=== PATIENT | female | born 1960 | race Caucasian/White ===

== ENCOUNTER → 2023-02-16 10:29 | Outpatient (BNVA) | payer OTHER, SELFPAY | PROVIDERS: Family Provider Nurse Practitioner; PCP Nurse Practitioner; Visit Provider Internal Medicine Cardiovascular Disease | DX: I48.91 Unspecified atrial fibrillation (principal) | CPT/HCPCS: 93005 ==

== ENCOUNTER → 2023-03-01 09:13 | Outpatient (BNVA) | payer MEDICAID, SELFPAY | PROVIDERS: Family Provider Nurse Practitioner; PCP Family Medicine; Visit Provider Family Medicine | DX: I48.91 Unspecified atrial fibrillation (principal); E11.9 Type 2 diabetes mellitus without complications; E78.5 Hyperlipidemia, unspecified | CPT/HCPCS: 80053; 80061; 83036; 83735; 84443; 85025 ==

== ENCOUNTER 2023-04-02 08:12 | Outpatient (CLI) | payer OTHER, SELFPAY ==
--- NOTE | 2023-04-02 08:45 | US_ITS ---
WS: [id number] Complete ABDOMINAL ULTRASOUND HISTORY: R10.32 - Left lower quadrant pain COMPARISON: None available. Liver: 17.0 cm in length. Normal size liver and echogenicity. No bile duct dilatation or mass. Portal Vein: Normal hepatopetal flow with monophasic waveform. Gallbladder: Gallbladder is not identified. No surgical history of cholecystectomy was provided. CBD: 0.5 cm Pancreas: Normal size and echogenicity. Right kidney: 11.0 cm x 5.9 x 4.7 cm. Cortex:1.1 cm. Normal size and echogenicity. No hydronephrosis or mass. Left kidney: 10.4 cm x 4.8 cm x 5.1 cm. Cortex: 1.0 cm. Normal size and echogenicity. No hydronephrosis or mass. Spleen: 11.0 cm in length. Normal size spleen. There is a calcified mass within the spleen measuring 3.0 x 3.1 x 2.8 cm. No increased vascularity. Aorta and IVC: Unremarkable abdominal aorta and IVC. Impression: 1. Calcified mass in the spleen measures 3.0 x 3.1 x 2.8 cm. No prior studies for comparison. This ma y be a granuloma. Calcified hematoma or cystic mass may also appear similar. 2. Gallbladder is not identified. Patient did not provide a history of prior cholecystectomy. 3. Normal liver.
== END 2023-04-02 08:13 | disposition home or self-care (01) ==
LOC: RAD 08:14
PROVIDERS: PCP Family Medicine; Visit Provider Family Medicine
DX: R10.32 Left lower quadrant pain (principal); R16.1 Splenomegaly, not elsewhere classified
CPT/HCPCS: 76700

== ENCOUNTER → 2023-06-04 12:18 | Outpatient (BNVA) | payer OTHER, SELFPAY | PROVIDERS: PCP Family Medicine; Visit Provider Family Medicine | DX: E11.9 Type 2 diabetes mellitus without complications (principal); E03.9 Hypothyroidism, unspecified; I48.91 Unspecified atrial fibrillation | CPT/HCPCS: 80053; 83036; 84443; 85025 ==

== ENCOUNTER → 2023-10-18 09:52 | Outpatient (BNVA) | payer OTHER, SELFPAY | PROVIDERS: PCP Family Medicine; Visit Provider Family Medicine | DX: I10 Essential (primary) hypertension (principal); E78.2 Mixed hyperlipidemia; E11.9 Type 2 diabetes mellitus without complications; E03.9 Hypothyroidism, unspecified | CPT/HCPCS: 80053; 80061; 82043; 82652; 83036; 84443; 85025 ==

== ENCOUNTER 2024-02-17 21:12 | Inpatient (IN) | payer OTHER, SELFPAY ==
[2024-02-17 21:16] VITALS: BP 123/86; PULSE 139; RESP 24; BMI 38.6
--- NOTE | 2024-02-17 21:23 | ECG_ITS ---
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 Measurements Intervals [place] Rate: 181 P: 0 DC: 0 QRS: 15 QRSD: 87 T: 129 QT: 237 QTc: 412 Interpretive Statements ATRIAL FIBRILLATION WITH RAPID VENTRICULAR RESPONSE WITH ABERRANT CONDUCTION OR VENTRICULAR PREMATURE COMPLEXES NONSPECIFIC ST & T-WAVE ABNORMALITY Compared to ECG 02/16/2023 10:34:38 Aberrant conduction of supraventricular beat(s) now present Ventricular premature complex(es) now present T-wave abnormality now present Sinus rhythm no longer present Electronically Signed On 02-18-2024 9:09:22 CDT by Boy Duncan M.D. [id number]
--- NOTE | 2024-02-17 21:38 | PC.NURSE ---
At time of obtaining vitals, heart rate noted to be elevated. EKG was then obtained; patient was then immediately moved to a room and Dr Nieto given printed EKG.
[2024-02-17] MEDS: metoprolol tartrate 1 mg/1 mL SDV 5 mL 5 MG IVP (21:44)
[2024-02-17] MEDS: ondansetron 2 mg/ML SDV 2 mL 4 MG IVP (21:45)
[2024-02-17] MEDS: sodium chloride 0.9% 1,000 ML 999 ML IV (21:45)
[2024-02-17 21:48] LABS: Basophils # 0.1 10^3/uL (0.0-0.1); Basophils % 1.1 %; Eosinophils # 0.1 10^3/uL (0.0-0.8); Eosinophils % 0.9 %; Hematocrit 53.1 % (36-47); Lymphocytes # 3.7 10^3/uL (0.8-4.8); Lymphocytes % 32.8 %; Mean Corpuscular Hemoglobin 31.7 pg (27-33); Mean Corpuscular Volume 90.6 fl (85-98); Mean Platelet Volume 10.7 fL (7.4-10.4); Monocytes # 0.8 10^3/uL (0.2-0.9); Monocytes % 7.3 %; Neutrophils # 6.49 10^3/uL (1.8-7.7); Neutrophils % 57.5 %; Nucleated Red Blood Cells % 0.2 %; Platelet Count 289 10^3/cmm (157-399); Red Blood Count 5.86 10^6/uL (3.85-5.65); Red Cell Distribution Width 12.8 % (12.1-15.1); White Blood Count 11.27 10^3/uL (3.29-11.43)
[2024-02-17 21:51] VITALS: TEMP 36.4
[2024-02-17 22:00] LABS: Alanine Aminotransferase 16 U/L (0-33); Albumin Level 3.8 g/dL (3.5-5.2); Alkaline Phosphatase 106 U/L (35-105); Anion Gap 23.7 (5-19); Aspartate Amino Transferase 16 U/L (0-32); Blood Urea Nitrogen 22 mg/dL (8-23); Calcium 9.1 mg/dL (8.5-10.5); Carbon Dioxide 25 mmol/L (22-29); Chloride 89 mmol/L (98-107); Creatinine Clr Calc Pharmacy 55.5294; Globulin 3.5 g/dL (1.3-4.6); Glomerular Filtration Rate 38.1 mL/min (90-130); Glucose 289 mg/dL (65-115); Lipase 32 U/L (13-60); Osmolality Calculated 294 mOsm/kg (285-295); Sodium 135 mmol/L (136-145); Total Bilirubin 0.7 mg/dL (0.15-1.2); Total Protein 7.3 g/dL (6.6-8.7)
[2024-02-17 22:05] LABS: Potassium 2.7 mmol/L (3.5-5.1)
[2024-02-17 22:26] VITALS: BP 142/92; PULSE 75; RESP 16; O2SAT 99
[2024-02-17 22:36] VITALS: BP 138/92; PULSE 76; RESP 16; O2SAT 98
[2024-02-17 22:54] LABS: SARS Covid-2 Antigen negative (Negative)
[2024-02-17 23:00] VITALS: BP 135/96; PULSE 78; RESP 19; O2SAT 98
[2024-02-17] MEDS: lidocaine 1% 5 ML in potassium chloride premix 100 ML 26.25 ML IV (23:03)
--- NOTE | 2024-02-17 23:06 | CTR_ITS ---
PROCEDURE INFORMATION: Exam: CT Abdomen And Pelvis Without Contrast Exam date and time: 02/17/2024 11:15 PM Age: 63 years old Clinical indication: Nausea and vomiting; Abdominal pain; Generalized; Prior surgery; Surgery date: 6+ months; Surgery type: Gb; Patient HX: Diffuse abd pain with n/v TECHNIQUE: Imaging protocol: Computed tomography of the abdomen and pelvis without contrast. Radiation optimization: All CT scans at this facility use at least one of these dose optimization techniques: automated exposure control; mA and/or kV adjustment per patient size (includes targeted exams where dose is matched to clinical indication); or iterative reconstruction. COMPARISON: US abdomen complete* [id number] 04/02/2023 8:30 AM RADIATION DOSE METRICS: Total DLP (mGy-cm): 1033.52 FINDINGS: Coronary arteries: Coronary artery calcifications. Liver: Normal. No mass. Gallbladder and biliary ducts: Status post cholecystectomy. Pancreas: Normal. No ductal dilation. Spleen: Peripherally calcified lesions within the spleen, the largest measuring approximately 4.0 x 3.5 cm likely representing calcified granulomas. Adrenal glands: Normal. No mass. Kidneys and ureters: Normal. No hydronephrosis. Stomach and bowel: Wall thickening of the ascending and transverse colon concerning for colitis. Appendix: No evidence of appendicitis. Intraperitoneal space: Unremarkable. No free air. No significant fluid collection. Vasculature: Moderate atherosclerotic calcifications. Lymph nodes: Unremarkable. No enlarged lymph nodes. Urinary bladder: Unremarkable as visualized. Reproductive: Unremarkable as visualized. Bones/joints: 2 mm anterolisthesis of L4 on L5. Soft tissues: Unremarkable. CT/CT abdomen pelvis wo con [id number] IMPRESSION: Wall thickening of the ascending and transverse colon concerning for colitis.
--- NOTE | 2024-02-17 23:06 | W.ED.ABDPA2 ---
HPI - Abdominal Pain General: Chief Complaint: Abdominal Pain Stated Complaint: Hasn't ate in 2 weeks due to stomach pain Time Seen by Provider: 02/17/24 21:37 History of Present Illness: 63-year-old female presents due to abdominal pain and reports that she has not eaten in 2 weeks because of the pain. Patient also reports that she did not take her sotalol today for her atrial fibs. She reports she has had a lot of nausea with a little bit of vomiting. Abdominal pain is nonspecific. Denies any fever, chills, shortness of breath or other systemic complaints. Associated Symptoms: Reports nausea; Denies chills and fever(s) Review of Systems Const: Reports: fatigue; Denies: fever(s) or chills Card: Denies: chest pain or palpitations Resp: Denies: dyspnea, productive cough or non-productive cough GI: Reports: abdominal pain and nausea Musc: Denies: neck pain or back pain Skin/Breast: Denies: rash PFSH ED PFSH: Medical History Hypertension Arthritis Surgical History S/P knee replacement S/P cholecystectomy Family History Mother Myocardial infarction S/P PTCA (percutaneous transluminal coronary angioplasty) Stroke Hyperlipidemia Father Myocardial infarction S/P PTCA (percutaneous transluminal coronary angioplasty) Hypertension Hyperlipidemia Sister Myocardial infarction S/P PTCA (percutaneous transluminal coronary angioplasty) Hypertension Diabetes Social History Smoking and tobacco/nicotine status: current every day tobacco/nicotine user cigarettes Packs smoked per day: 1 Years cigarettes smoked: 50 Physical Exam Const: COMMON NORMALS: no acute distress and patient oriented x3 NUTRITIONAL APPEARANCE: obese Resp: COMMON NORMALS: normal respiratory effort, No use of accessory muscles and clear to auscultation bilaterally AUSCULTATION: clear to auscultation bilaterally Cardio: RATE: tachycardic RHYTHM: abnormal rhythm GI: INSPECTION: Yes normal to inspection Neuro: COMMON NORMALS: patient oriented x3, CN's II-XII intact bilaterally, moves all extremities, no focal motor deficits and no sensory deficits noted Psych: COMMON NORMALS: mental status grossly normal, cooperative and normal affect Course Vital Signs: Vital signs: Vital Signs Temperature 97.5 F L 02/17/24 21:51 Pulse Rate 75 02/18/24 01:24 Respiratory Rate 16 02/18/24 01:24 Blood Pressure 160/104 02/18/24 01:24 Pulse Oximetry 95 02/18/24 01:24 Oxygen Delivery Me thod Room Air 02/17/24 22:36 MDM - Abdominal Pain Medical Decision Making Patient diagnoses were reviewed and interpreted by me. Patient labs are consistent with some dehydration and vomiting with potassium loss with a potassium of 2.7, slight decrease in her sodium and chloride. Slight increase in her baseline creatinine. Patient CT was positive for colitis along with labs concerning for urinary tract infection. She was given Rocephin in the ER along with 40 mill equivalents IV potassium. Patient's initial rhythm showed a heart rate of 181 with A-fib with RVR. She was given 5 mg of metoprolol IV along with IV fluids and converted back to sinus rhythm with her heart rates been in the 70s. Patient reports that she had mild keep her sotalol down is likely why she was in atrial fibs. Patient will be admitted to the hospitalist Dr. Hull for observation for further inpatient management. She is stable upon admission. Lab Data 02/17/24 21:39 02/17/24 21:39 Labs/Radiology: Radiology Impressions Abdomen/Pelvis CT 02/17/24 23:06 IMPRESSION: Wall thickening of the ascending and transverse colon concerning for colitis. Laboratory Results WBC 11.27 10^3/uL (3.29-11.43) 02/17/24 21:39 RBC 5.86 10^6/uL (3.85-5.65) H 02/17/24 21:39 Hgb 18.60 g/dL (11.27-16.99) H 02/17/24 21:39 Hct 53.1 % (36-47) H 02/17/24 21:39 MCV 90.6 fl (85-98) 02/17/24 21:39 MCH 31.7 pg (27-33) 02/17/24 21:39 MCHC 35.0 g/dL (30-55) 02/17/24 21:39 RDW 12.8 % (12.1-15.1) 02/17/24 21:39 Plt Count 289 10^3/cmm (157-399) 02/17/24 21:39 MPV 10.7 fL (7.4-10.4) H 02/17/24 21:39 Neut % (Auto) 57.5 % 02/17/24 21:39 Lymph % (Auto) 32.8 % 02/17/24 21:39 [place] % (Auto) 7.3 % 02/17/24 21:39 Eos % (Auto) 0.9 % 02/17/24 21:39 Baso % (Auto) 1.1 % 02/17/24 21:39 Neut # (Auto) 6.49 10^3/uL (1.8-7.7) 02/17/24 21:39 Lymph # (Auto) 3.7 10^3/uL (0.8-4.8) 02/17/24 21:39 [place] # (Auto) 0.8 10^3/uL (0.2-0.9) 02/17/24 21:39 Eos # (Auto) 0.1 10^3/uL (0.0-0.8) 02/17/24 21:39 Baso # (Auto) 0.1 10^3/uL (0.0-0.1) 02/17/24 21:39 Nucleated RBC % (auto) 0.2 % 02/17/24 21:39 Nucleated RBCs # 0.0 /100WBC 02/17/24 21:39 Sodium 135 mmol/L (136-145) L 02/17/24 21:39 Potassium 2.7 mmol/L (3.5-5.1) L* 02/17/24 21:39 Chloride 89 mmol/L (98-107) L 02/17/24 21:39 Carbon Dioxide 25 mmol/L (22-29) 02/17/24 21:39 Anion Gap 23.7 (5-19) H 02/17/24 21:39 BUN 22 mg/dL (8-23) 02/17/24 21:39 Creatinine 1.4 mg/dL (0.5-0.9) H 02/17/24 21:39 GFR Calculation 38.1 mL/min (90-130) L 02/17/24 21:39 Glucose 289 mg/dL (65-115) H 02/17/24 21:39 Calculated Osmolality 294 mOsm/kg (285-295) 02/17/24 21:39 Calcium 9.1 mg/dL (8.5-10.5) 02/17/24 21:39 Total Bilirubin 0.7 mg/dL (0.15-1.2) 02/17/24 21:39 AST 16 U/L (0-32) 02/17/24 21:39 ALT 16 U/L (0-33) 02/17/24 21:39 Alkaline Phosphatase 106 U/L (35-105) H 02/17/24 21:39 Total Protein 7.3 g/dL (6.6-8.7) 02/17/24 21:39 Albumin 3.8 g/dL (3.5-5.2) 02/17/24 21:39 Globulin 3.5 g/dL (1.3-4.6) 02/17/24 21:39 Lipase 32 U/L (13-60) 02/17/24 21:39 Urine Color Dark yellow (Yellow) A 02/18/24 01:00 Urine Appearance Cloudy (CLEAR) A 02/18/24 01:00 Urine pH 5.5 (5-7) 02/18/24 01:00 Ur Specific [place] 1.023 (1.005-1.030) 02/18/24 01:00 Urine Protein 1+ (Negative) A 02/18/24 01:00 Urine Glucose (UA) Negative (Normal) 02/18/24 01:00 Urine Ketones Trace (Negative) 02/18/24 01:00 Urine Blood Negative (Negative) 02/18/24 01:00 Urine Nitrate Negative (Negative) 02/18/24 01:00 Urine Bilirubin 2+ (Negative) H 02/18/24 01:00 Urine Urobilinogen 1.0 mg/dL (Negative) 02/18/24 01:00 Ur Leukocyte Esterase 1+ (Negative) A 02/18/24 01:00 Urine RBC 6-10 /hpf (0-2) 02/18/24 01:00 Urine WBC 21-50 /hpf (0-5) H 02/18/24 01:00 Ur Squamous Epith Cells 6-10 /hpf (0-5) 02/18/24 01:00 Amorphous Sediment Not Reportable 02/18/24 01:00 Urine Bacteria 4+ /hpf (NONE) H 02/18/24 01:00 Hyaline Casts 38.59 /lpf 02/18/24 01:00 SARS-CoV-2 Ag (Rapid) negative (Negative) 02/17/24 22:32 All radiology interpretation(s) finalized by discharge EKG Data EKG 1: I personally reviewed and interpreted this EKG as follows: EKG interpretation date: 02/17/24 EKG interpretation time: 21:23 Interpretation: Atrial fibs with RVR with ventricular rate 181, nonspecific ST and T wave changes. QTc 332. Discharge Plan Discharge Patient Disposition: Placed in Observation Clinical Impression: Colitis, Acute hypokalemia Urinary tract infection Qualifiers: Urinary tract infection type: acute cystitis Hematuria presence: with hematuria Qualified Code(s): N30.01 - Acute cystitis with hematuria Coding Level of Care Code ED Donor Services Technician for Boo Burnett
[2024-02-17 23:30] VITALS: BP 137/95; PULSE 74; RESP 17; O2SAT 95
[2024-02-17] MEDS: famotidine 20 mg/2 mL INJ IVP (23:48)
[2024-02-18] VITALS (11 sets, daily range): BP systolic 112–165; BP diastolic 67–106; PULSE 71–82; RESP 16–19; TEMP 36.4–36.8; O2SAT 90–96
[2024-02-18] MEDS: metoclopramide 5 mg/mL SDV 2 mL IVP ×2 (00:44→09:41)
[2024-02-18] MEDS: dicyclomine 20 mg Tablet PO (00:44)
[2024-02-18 01:02] LABS: Charge for UA Resulting for Rev
[2024-02-18 01:04] LABS: Bilirubin Urine 2+ (Negative); Blood Urine Negative (Negative); Glucose Urine UA Negative (Normal); Ketones Urine Trace (Negative); Leukocyte Esterase Urine 1+ (Negative); Nitrate Urine Negative (Negative); Protein Urine 1+ (Negative); Specific Gravity, Urine 1.023 (1.005-1.030); Urine Appearance Cloudy (CLEAR); Urine Color Dark Yellow (Yellow); pH Urine 5.5 (5-7)
[2024-02-18 01:09] LABS: Bacteria Urine 4+ /hpf; Hyaline Casts Urine 38.59 /lpf; WBC Urine 21-50 /hpf (0-5)
--- NOTE | 2024-02-18 01:10 | PC.NURSE ---
Assumed care from Joceline JACKSON at this time.
[2024-02-18 01:18] LABS: Add Urine Culture? Yes
[2024-02-18] MEDS: cefTRIAXone 1,000 mg SDV 1000 MG IVP (01:44)
--- NOTE | 2024-02-18 02:24 | P.HP_ITS ---
Providers/Chief Complaint 2 Primary Care Provider: Christianne Jiang MD Chief Complaint: Hasn't ate in 2 weeks due to stomach pain History of Present Illness Arun Minaya is a 63 year old female with a past medical history significant for hypertension, paroxysmal atrial fibrillation, arthritis, hypothyroidism, type 2 diabetes mellitus, hyperlipidemia, obstructive sleep apnea, and tobacco use disorder who presents emergency department with GI complaints x 2 weeks. Patient endorses nausea, vomiting, diarrhea, and abdominal pains. Reports pain is worse in bilateral lower quadrants. She reports she is not had significant oral intake in 2 weeks due to the symptoms. Denies fevers or chills. Oral intake source and symptoms. Denies alleviating symptoms. In the emergency department, she was found to have urinary tract infection and colitis. She denies prior known history of colitis. She reports colonoscopy was about 4 years ago where polyps were found. She is due for repeat colonoscopy in 2024. Review of Systems 2 Narrative: A complete review of systems was obtained and is negative except as stated in HPI. Medications/Allergies Home Medications Medication Instructions Recorded Confirmed Last Taken Type acetaminophen 325 mg tablet 325 mg PO QID PRN 02/16/23 02/08/24 Unknown History loratadine 10 mg tablet 10 mg PO DAILY 02/16/23 02/08/24 Unknown History vitamin B complex (B 1 tab PO DAILY 02/16/23 02/08/24 Unknown History Complex-Vitamin B12 tablet) apixaban 5 mg tablet (Eliquis) 5 mg PO BID #60 tabs 07/05/23 02/08/24 Unknown Rx buspirone 5 mg tablet 5 mg PO BID PRN anxiety #60 tabs 07/05/23 02/08/24 Unknown Rx levothyroxine 50 mcg tablet 50 mcg PO DAILY #30 tabs 07/05/23 02/08/24 Unknown Rx magnesium oxide 400 mg PO DAILY #90 caps 07/05/23 02/08/24 Unknown Rx metformin 1,000 mg tablet,extended 1,000 mg PO BID #60 tabs 07/05/23 02/08/24 Unknown Rx release 24hr (osmotic) potassium chloride 10 mEq 10 meq PO BID #180 tabs 07/05/23 02/08/24 Unknown Rx tablet,extended release simvastatin 40 mg tablet 40 mg PO DAILY #30 tabs 07/05/23 02/08/24 Unknown Rx sitagliptin phosphate 100 mg 100 mg PO DAILY #30 tabs 07/05/23 02/08/24 Unknown Rx tablet (Januvia) empagliflozin 25 mg tablet 25 mg PO DAILY #30 tabs 10/01/23 02/08/24 Unknown Rx (Jardiance) benzonatate 100 mg capsule 100 mg PO TID PRN cough #30 caps 10/29/23 02/08/24 Unknown Rx paroxetine HCl 40 mg tablet 40 mg PO .HS #30 tabs 10/29/23 02/08/24 Unknown Rx albuterol sulfate 90 mcg/actuation 2 puff inhalation QID PRN 11/08/23 02/08/24 Unknown Rx aerosol inhaler shortness of breath or wheezing #8.5 grams furosemide 40 mg tablet 40 mg PO DAILY #30 tabs 11/08/23 02/08/24 Unknown Rx Shower chair #1 ea 11/16/23 02/08/24 Unknown Rx semaglutide 0.25 mg or 0.5 mg (2 0.25 mg (0.368 mL) SUBCUT .COMPLEX 12/07/23 02/08/24 Unknown Rx mg/3 mL) subcutaneous pen injector #3 mL (Ozempic) sotalol 80 mg tablet See Rx Instructions .Route 01/14/24 02/08/24 Unknown Rx .COMPLEX #60 tabs diphenoxylate-atropine 2.5 1 tab PO TID PRN diarrhea #20 tabs 02/08/24 02/08/24 Unknown Rx mg-0.025 mg tablet (Lomotil) ondansetron 4 mg disintegrating 4 mg PO DAILY #30 tabs 02/08/24 02/08/24 Unknown Rx tablet Allergies Allergy/AdvReac Type Severity Reaction Status Date / Time amoxicillin Allergy Mild ALGY-Hives Verified 12/20/23 11:02 lisinopril AdvReac Severe ADR-Cough Verified 12/20/23 11:02 metaxalone AdvReac Severe ADR-Diarrhe Verified 12/20/23 11:02 a codeine AdvReac Mild Messes Verified 12/20/23 11:02 with brain steroids AdvReac Mild Swelling Uncoded 12/20/23 11:02 PFSH Acute 2 PFSH: Medical History Hypertension Arthritis Surgical History S/P knee replacement S/P cholecystectomy Family History Mother Myocardial infarction S/P PTCA (percutaneous transluminal coronary angioplasty) Stroke Hyperlipidemia Father Myocardial infarction S/P PTCA (percutaneous transluminal coronary angioplasty) Hypertension Hyperlipidemia Sister Myocardial infarction S/P PTCA (percutaneous transluminal coronary angioplasty) Hypertension Diabetes Social History Smoking and tobacco/nicotine status: current every day tobacco/nicotine user cigarettes Packs smoked per day: 1 Years cigarettes smoked: 50 Vitals/I&O/Wt Last Vital Signs Temp 97.5 F L 02/17/24 21:51 Pulse 75 02/18/24 01:24 Resp 16 02/18/24 01:24 BP 160/104 02/18/24 01:24 Pulse Ox 95 02/18/24 01:24 O2 Del Method Room Air 02/17/24 22:36 02/17/24 02/17/24 02/18/24 14:59 22:59 06:59 Intake Total 1000 / 1000 Balance 1000 / 1000 Weight last 48 hrs Weight 115.212 kg Physical Exam 2 Narrative: General: Patient is awake. Head: Normocephalic. Atraumatic. EOM intact. Dry mucous membranes. Neck: No JVD. Cardiovascular: RRR. No gallops. No murmurs. No peripheral edema. Lungs: Clear to auscultation, no use of accessory muscles, no crackles or wheezes. Skin: No jaundice. No rashes. Abdomen: Hypoactive bowel sounds. Abdomen slightly tender to palpation. No guarding. Genito Urinary: Genital exam not performed since complaints not related. Rectal: Rectal exam not performed since no symptoms indicated blood loss. Extremities: No cyanosis or clubbing. Musculoskeletal: No swollen or erythematous joints. Neurological: Moves all 4 extremities. No myoclonus. Data 02/17/24 21:39 02/17/24 21:39 A&P Assessment and plan (1) Colitis: Stool studies ordered Start broad-spectrum antibiotics with Zosyn, will avoid fluoroquinolones due to being on sotalol Start IV fluids Clear liquid diet PPI IV Antiemetics as needed (2) Urinary tract infection: Reflux urinalysis to culture Start Celebrex for antibiotics with Zosyn as above Qualifiers: Hematuria presence: with hematuria Urinary tract infection type: acute cystitis Qualified Code(s): N30.01 - Acute cystitis with hematuria (3) Acute hypokalemia: Secondary to GI loss Status post 40 mEq of IV potassium in the ED Will repeat potassium level in the morning (4) Acute kidney injury: Suspect prerenal due to GI loss Hold Lasix Start IV fluids Renally dose medications Trend labs (5) Atrial fibrillation: Patient reportedly in atrial fibrillation with RVR upon presentation to ED Status post IV beta-german with improvement in rate Continue home medications after nausea/vomiting improves Qualifiers: Atrial fibrillation type: paroxysmal Qualified Code(s): I48.0 - Paroxysmal atrial fibrillation (6) Hypertension: Hold home antihypertensives for now, reintroduce as clinical status improves Qualifiers: Hypertension type: primary hypertension Qualified Code(s): I10 - Essential (primary) hypertension (7) Depression with anxiety: Plan to continue home meds after update (8) Diabetes: Hold oral medications Sliding-scale insulin correction Qualifiers: Diabetes mellitus type: type 2 Diabetes mellitus residential insulin use: without residential use Diabetes mellitus complication status: without complication Qualified Code(s): E11.9 - Type 2 diabetes mellitus without complications (9) Hypothyroidism: Continue home Synthroid Qualifiers: Hypothyroidism type: unspecified Qualified Code(s): E03.9 - Hypothyroidism, unspecified Plan DVT prophylaxis: Apixaban CODE STATUS: Full code Attestations 2 Medical Necessity Statement*: Patient presents with GI symptoms, found to have colitis and acute complicated urinary tract infection with intractable nausea vomiting with expected hospitalization not to cross 2 midnights for IV fluids, antiemetics, IV antibiotics and supportive care. Coding Level of Care Code Acute Code for [facility] Fwd Diagnoses Colitis K52.9 Urinary tract infection N30.01 Hematuria presence: with hematuria Urinary tract infection type: acute cystitis Acute hypokalemia E87.6 Acute kidney injury N17.9 Paroxysmal atrial fibrillation I48.0 Atrial fibrillation type: paroxysmal Primary hypertension I10 Hypertension type: primary hypertension Depression with anxiety F41.8 Type 2 diabetes mellitus without complication, without long-term current use of insulin E11.9 Diabetes mellitus type: type 2 Diabetes mellitus residential insulin use: without termite inspector use Diabetes mellitus complication status: without complication Hypothyroidism, unspecified type E03.9 Hypothyroidism type: unspecified
--- NOTE | 2024-02-18 02:44 | PC.NURSE ---
Dr Hull gave this nurse verbal order for Zofran 4mg IVP once.
[2024-02-18] MEDS: ondansetron 2 mg/ML SDV 2 mL 4 MG IVP (02:46)
--- NOTE | 2024-02-18 03:16 | PC.NURSE ---
Report was called to Neyda JACKSON on MS; all questions and concerns were addressed at time of report.
[2024-02-18] MEDS: metroNIDAZOLE IV 500 MG/100 ML PREMIX 100 MG IV ×3 (03:56→20:40)
[2024-02-18] MEDS: pantoprazole 40 mg SDV IVP ×2 (03:56→13:50)
[2024-02-18] MEDS: sodium chlor 0.9% + KCl 20 mEq 20 MEQ/1,000 ML BAG 150 MEQ IV (03:56)
--- NOTE | 2024-02-18 04:09 | PC.NURSE ---
Patient does not have a list of home medications and does not know them. Patient states they should be in my chart. Patient educated that we need to update/verify home medications each admission to make sure there are no changes. Patient states she uses [facility] and [facility] in [place], but that most of her medications she gets through [facility].
--- NOTE | 2024-02-18 04:14 | PC.NURSE ---
Dr. Hull notified of patient still c/o nausea despite receiving the following in the ED: Bentyl, Pepcid, 8 mg Zofran, and 5 mg Reglan. Phenergan x1 ordered.
[2024-02-18] MEDS: promethazine 25 mg/mL SDV 1 mL IM (05:09)
[2024-02-18] MEDS: morphine 4 mg/mL SDV 1 mL 2 MG IVP (05:09)
[2024-02-18 06:07] LABS: Glucose Point of Care 297 mg/dL (70-110)
[2024-02-18 06:41] LABS: Albumin Level 2.9 g/dL (3.5-5.2); Anion Gap 19.9 (5-19); Blood Urea Nitrogen 24 mg/dL (8-23); Carbon Dioxide 22 mmol/L (22-29); Chloride 97 mmol/L (98-107); Creatinine Clr Calc Pharmacy 77.9751; Glomerular Filtration Rate 56.2 mL/min (90-130); Glucose 304 mg/dL (65-115); Magnesium 1.3 mg/dL (1.7-2.3); Osmolality Calculated 297 mOsm/kg (285-295); Phosphorus 3.5 mg/dL (2.5-4.5); Sodium 136 mmol/L (136-145)
[2024-02-18 06:46] LABS: Potassium 2.9 mmol/L (3.5-5.1)
[2024-02-18] MEDS: insulin lispro 100 unit/1 mL SUBCUT ×4 (08:37→20:39)
[2024-02-18] MEDS: lidocaine 1% 5 ML in potassium chloride premix 100 ML 26.25 ML IV (09:41)
--- NOTE | 2024-02-18 10:09 | PC.CHAP ---
Pastoral Care Encounter/Spiritual Assessment Type of Contact [] Declined assistant sales center manager visit [x] Patient/Family/Request visit [] Outpatient visit [] Follow-up visit [] Physician referral [] Code/Alert [] Routine visit [] Staff referral [] Actively dying [] Patient sleeping [] Family support [] [] Out of room [] Palliative care [] [] Receiving care in room [] Pre-surgical visit [] Trauma [] Long length of stay [] ICU visit [x] Other: see manas. 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 Interventions [x] Prayer [x] Active listening [] Non-anxious presence [] Spiritual/emotional support [] Crisis/trauma care [] Spiritual counseling [] Bereavement support [] Provided bereavement packet [] Provided Bible/devotional materials [] Provided toy/stuffed animal, coloring book to patient or family member [] Provided Communion [] Anointing/[place] [] Salvation [] Completed spiritual assessment [] Other: Impact on Illness or Injury [] Angry [x] Fearful [x] Anxious [] Often cries [x] Exhaustion [] Unable to work [] Unable to attend church [] Unable to walk/stand [] Unable to read [] Unable to drive [] Unable to eat/drink [] Unable to sleep [] Unable to be with family [] Patient intubated [] Other: Summary as i went to visit bed 2, staff was with -2. bed 1 asked for prayer. afterword i visited with -2 Time spent with patient 5 min
[2024-02-18 10:40] LABS: Glucose Point of Care 227 mg/dL (70-110)
[2024-02-18] MEDS: magnesium sulfate premix 2 GM/50 ML PIGGYBACK IV (11:02)
--- NOTE | 2024-02-18 11:30 | W.PM.EVENTAC ---
Event Note Event Note: Patient this morning was vomiting I gave her 1 dose of Reglan Hypokalemia hypomagnesemia replenished Patient was clinically dehydrated She does have hyperglycemia Anion gap 19.9 Check ketones Patient lives alone There is no comment on stomach wall distention will get KUB as well to make sure there is no stomach distention. She will need decompression via NG tube Continue clear liquid diet for now Continue ceftriaxone and metronidazole patient is currently experiencing emesis related to colitis, I will get KUB to know more about her stomach anatomy She is hyperglycemic currently on IV fluids Continue antibiotics
[2024-02-18 12:31] LABS: Ketone (Acetest) Serum Negative (Negative)
--- NOTE | 2024-02-18 13:26 | XR_ITS ---
WS: [id number] KUB, AP view, 02/18/2024 Clinical Data: stomach distention? Comparison: None. Findings: No abnormal intraabdominal masses are seen. There is no dilatated small bowel or evidence of obstruc tion. There is a 5.4 cm left upper quadrant calcification which is in the spleen. There are right upper marlon drant cholecystectomy clips. There are monitor leads over the abdominal wall. There is air in the sto mach, small bowel and colon. XR/XR KUB portable [id number] Impression: Mild generalized ileus.
[2024-02-18] MEDS: sodium chlor 0.9% + KCl 20 mEq 20 MEQ/1,000 ML BAG 100 MEQ IV ×2 (13:47→23:39)
[2024-02-18 16:13] LABS: Glucose Point of Care 155 mg/dL (70-110)
[2024-02-18 20:24] LABS: Glucose Point of Care 156 mg/dL (70-110)
[2024-02-19] VITALS (11 sets, daily range): BP systolic 102–144; BP diastolic 72–79; PULSE 52–118; RESP 16–18; TEMP 36.4–36.8; O2SAT 91–94
[2024-02-19] MEDS: cefTRIAXone 1,000 mg SDV 1000 MG IVP (03:09)
[2024-02-19] MEDS: pantoprazole 40 mg SDV IVP ×2 (03:11→15:00)
--- NOTE | 2024-02-19 03:30 | ECG_ITS ---
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 Measurements Intervals [place] Rate: 139 P: 0 TX: 0 QRS: 21 QRSD: 94 T: 203 QT: 303 QTc: 462 Interpretive Statements ATRIAL FIBRILLATION WITH RAPID VENTRICULAR RESPONSE NONSPECIFIC ST & T-WAVE ABNORMALITY Compared to ECG 02/17/2024 21:23:13 Aberrant conduction of supraventricular beat(s) no longer present Ventricular premature complex(es) no longer present T-wave abnormality still present Electronically Signed On 02-19-2024 6:58:26 CDT by Boy Duncan M.D. [id number]
[2024-02-19 03:36] LABS: Basophils # 0.1 10^3/uL (0.0-0.1); Basophils % 0.7 %; Eosinophils # 0.2 10^3/uL (0.0-0.8); Eosinophils % 1.7 %; Hematocrit 40.9 % (36-47); Lymphocytes # 2.3 10^3/uL (0.8-4.8); Lymphocytes % 27.2 %; Mean Corpuscular HGB Conc 33.7 g/dL (30-55); Mean Corpuscular Hemoglobin 31.9 pg (27-33); Mean Corpuscular Volume 94.5 fl (85-98); Mean Platelet Volume 10.5 fL (7.4-10.4); Monocytes # 0.7 10^3/uL (0.2-0.9); Monocytes % 7.9 %; Neutrophils # 5.33 10^3/uL (1.8-7.7); Neutrophils % 61.9 %; Nucleated Red Blood Cells % 0 %; Platelet Count 163 10^3/cmm (157-399); Red Blood Count 4.33 10^6/uL (3.85-5.65); Red Cell Distribution Width 13.3 % (12.1-15.1); White Blood Count 8.61 10^3/uL (3.29-11.43)
[2024-02-19] MEDS: metoprolol tartrate 1 mg/1 mL SDV 5 mL 5 MG IVP (03:52)
[2024-02-19 04:01] LABS: Alanine Aminotransferase 11 U/L (0-33); Albumin Level 2.5 g/dL (3.5-5.2); Alkaline Phosphatase 70 U/L (35-105); Anion Gap 15.1 (5-19); Aspartate Amino Transferase 8 U/L (0-32); Blood Urea Nitrogen 17 mg/dL (8-23); Calcium 7.7 mg/dL (8.5-10.5); Carbon Dioxide 23 mmol/L (22-29); Chloride 104 mmol/L (98-107); Creatinine Clr Calc Pharmacy 97.4688; Globulin 2.5 g/dL (1.3-4.6); Glomerular Filtration Rate 72.7 mL/min (90-130); Glucose 116 mg/dL (65-115); Magnesium 1.6 mg/dL (1.7-2.3); Osmolality Calculated 291 mOsm/kg (285-295); Phosphorus 2.3 mg/dL (2.5-4.5); Potassium 3.1 mmol/L (3.5-5.1); Sodium 139 mmol/L (136-145); Total Bilirubin 0.3 mg/dL (0.15-1.2)
[2024-02-19] MEDS: metroNIDAZOLE IV 500 MG/100 ML PREMIX 100 MG IV ×3 (04:02→21:38)
[2024-02-19] MEDS: sotalol 80 mg Tablet PO (05:20)
[2024-02-19 06:31] LABS: Glucose Point of Care 120 mg/dL (70-110)
--- NOTE | 2024-02-19 08:32 | PM.PN ---
Subjective Subjective: Seen this morning. Laying in bed appearing comfortable. Says she feels slightly better. Nausea vomiting has resolved. Potassium 3.1 this morning. Magnesium 1.6 phosphorus 2.3 Vitals/I&O/Wt Last Vital Signs Temp 97.6 F 02/19/24 04:00 Pulse 118 H 02/19/24 06:00 Resp 18 02/19/24 04:00 BP 117/76 02/19/24 04:00 Pulse Ox 94 02/19/24 04:00 O2 Del Method Room Air 02/18/24 15:34 02/18/24 02/19/24 02/19/24 22:59 06:59 14:59 Intake Total 340 / 1955 1206.667 / 3161.667 Balance 340 / 1895 1206.667 / 3101.667 Weight last 48 hrs Weight 119.023 kg Weight 115.847 kg Weight 116.074 kg Weight 115.212 kg Physical Exam Narrative: General: Patient is awake. Head: Normocephalic. Atraumatic. EOM intact. Dry mucous membranes. Cardiovascular: RRR. No murmurs. No peripheral edema. Lungs: Clear to auscultation, no use of accessory muscles, no crackles or wheezes. Abdomen: Hypoactive bowel sounds. Abdomen nontender to palpation Extremities: No cyanosis or clubbing. Musculoskeletal: No swollen or erythematous joints. Neurological: Moves all 4 extremities. Data 02/19/24 02:00 02/19/24 02:00 A&P Assessment and plan (1) Colitis: Stool studies ordered Continue ceftriaxone at this time. Continue metronidazole Continue on clear liquid diet. Follow-up KUB today. KUB yesterday showed possible ileus. Clear liquid diet PPI IV Antiemetics as needed. (2) Urinary tract infection: Reflux urinalysis to culture Ceftriaxone will cover. Qualifiers: Hematuria presence: with hematuria Urinary tract infection type: acute cystitis Qualified Code(s): N30.01 - Acute cystitis with hematuria (3) Acute hypokalemia: Secondary to GI loss Status post 40 mEq of IV potassium in the ED Will repeat potassium level in the morning (4) Acute kidney injury: Suspect prerenal due to GI loss Hold Lasix Start IV fluids Renally dose medications Trend labs (5) Atrial fibrillation: Patient reportedly in atrial fibrillation with RVR upon presentation to ED Status post IV beta-german with improvement in rate Continue home medications after nausea/vomiting improves Sotalol on hold at this time. Qualifiers: Atrial fibrillation type: paroxysmal Qualified Code(s): I48.0 - Paroxysmal atrial fibrillation (6) Hypertension: Hold home antihypertensives for now, reintroduce as clinical status improves Qualifiers: Hypertension type: primary hypertension Qualified Code(s): I10 - Essential (primary) hypertension (7) Depression with anxiety: Plan to continue home meds after update (8) Diabetes: Hold oral medications Sliding-scale insulin correction Qualifiers: Diabetes mellitus type: type 2 Diabetes mellitus long term care social worker insulin use: without long term care social worker use Diabetes mellitus complication status: without complication Qualified Code(s): E11.9 - Type 2 diabetes mellitus without complications (9) Hypothyroidism: Continue home Synthroid Qualifiers: Hypothyroidism type: unspecified Qualified Code(s): E03.9 - Hypothyroidism, unspecified Plan DVT prophylaxis: Apixaban CODE STATUS: Full code Attestations Medical Necessity Statement*: Continue to monitor in hospital Diagnoses Colitis K52.9 Urinary tract infection N30.01 Hematuria presence: with hematuria Urinary tract infection type: acute cystitis Acute hypokalemia E87.6 Acute kidney injury N17.9 Paroxysmal atrial fibrillation I48.0 Atrial fibrillation type: paroxysmal Primary hypertension I10 Hypertension type: primary hypertension Depression with anxiety F41.8 Type 2 diabetes mellitus without complication, without long-term current use of insulin E11.9 Diabetes mellitus type: type 2 Diabetes mellitus long term care social worker insulin use: without long term care social worker use Diabetes mellitus complication status: without complication Hypothyroidism, unspecified type E03.9 Hypothyroidism type: unspecified
[2024-02-19] MEDS: sodium chlor 0.9% + KCl 20 mEq 20 MEQ/1,000 ML BAG 100 MEQ IV ×2 (11:49→21:31)
--- NOTE | 2024-02-19 11:50 | XRR_ITS ---
PROCEDURE INFORMATION: Exam: XR Abdomen Exam date and time: 02/19/2024 12:00 PM Age: 63 years old Clinical indication: Abdominal tenderness and bloating; Prior surgery; Surgery date: 6+ months; Surgery type: Cholecystectomy; Patient HX: Ileus; Abdominal pain/distention TECHNIQUE: Imaging protocol: Radiologic exam of the abdomen. Views: Frontal supine view of the abdomen. 1 View. COMPARISON: CR XR KUB portable [id number] 02/18/2024 2:45 PM FINDINGS: Gastrointestinal tract: Nonspecific bowel gas pattern. Air is seen within the colon. Organs: Cholecystectomy clips project over the right upper quadrant. Bones/joints: Degenerative changes of the spine seen. Other findings: Calcific densities again seen projecting over the left upper quadrant. XR/XR KUB [id number] IMPRESSION: Nonspecific bowel gas pattern.
[2024-02-19 12:00] LABS: Glucose Point of Care 175 mg/dL (70-110)
[2024-02-19] MEDS: insulin lispro 100 unit/1 mL SUBCUT ×2 (12:44→21:31)
[2024-02-19 17:06] LABS: Glucose Point of Care 111 mg/dL (70-110)
[2024-02-19 21:07] LABS: Glucose Point of Care 147 mg/dL (70-110)
[2024-02-20] VITALS (8 sets, daily range): BP systolic 110–147; BP diastolic 66–93; PULSE 15–58; RESP 16–52; TEMP 36.4–36.6; O2SAT 91–93
[2024-02-20] MEDS: pantoprazole 40 mg SDV IVP ×2 (03:30→14:15)
[2024-02-20] MEDS: cefTRIAXone 1,000 mg SDV 1000 MG IVP (03:31)
[2024-02-20 04:18] LABS: Basophils % 0.3 %; Eosinophils # 0.2 10^3/uL (0.0-0.8); Eosinophils % 3.4 %; Hematocrit 38.6 % (36-47); Lymphocytes # 1.4 10^3/uL (0.8-4.8); Lymphocytes % 21.3 %; Mean Corpuscular HGB Conc 33.4 g/dL (30-55); Mean Corpuscular Hemoglobin 31.8 pg (27-33); Mean Corpuscular Volume 95.1 fl (85-98); Mean Platelet Volume 10.3 fL (7.4-10.4); Monocytes # 0.5 10^3/uL (0.2-0.9); Monocytes % 8.1 %; Neutrophils # 4.45 10^3/uL (1.8-7.7); Neutrophils % 66.6 %; Nucleated Red Blood Cells % 0 %; Platelet Count 147 10^3/cmm (157-399); Red Blood Count 4.06 10^6/uL (3.85-5.65); Red Cell Distribution Width 13.4 % (12.1-15.1); White Blood Count 6.68 10^3/uL (3.29-11.43)
[2024-02-20] MEDS: metroNIDAZOLE IV 500 MG/100 ML PREMIX 100 MG IV ×3 (04:37→20:50)
[2024-02-20 04:47] LABS: Anion Gap 15.7 (5-19); Blood Urea Nitrogen 11 mg/dL (8-23); Calcium 7.4 mg/dL (8.5-10.5); Carbon Dioxide 22 mmol/L (22-29); Chloride 103 mmol/L (98-107); Creatinine Clr Calc Pharmacy 114.8926; Glomerular Filtration Rate 84.8 mL/min (90-130); Glucose 105 mg/dL (65-115); Magnesium 1.4 mg/dL (1.7-2.3); Osmolality Calculated 284 mOsm/kg (285-295); Potassium 3.7 mmol/L (3.5-5.1); Sodium 137 mmol/L (136-145)
[2024-02-20 06:24] LABS: Glucose Point of Care 104 mg/dL (70-110)
[2024-02-20] MEDS: sodium chlor 0.9% + KCl 20 mEq 20 MEQ/1,000 ML BAG 100 MEQ IV ×2 (08:47→19:56)
--- NOTE | 2024-02-20 09:13 | XRR_ITS ---
PROCEDURE INFORMATION: Exam: XR Abdomen Exam date and time: 02/20/2024 4:59 PM Age: 63 years old Clinical indication: Prior surgery; Surgery date: 6+ months; Surgery type: Cholecystectomy; Patient HX: Follow up ileus; Abdominal pain/distention TECHNIQUE: Imaging protocol: Radiologic exam of the abdomen. Views: Frontal supine view of the abdomen. 1 View. COMPARISON: CR XR KUB [id number] 02/19/2024 12:00 PM FINDINGS: Gastrointestinal tract: A loop of small bowel within the left hemiabdomen measures up to 3.6 cm. Intraperitoneal space: No evidence of pneumoperitoneum. Right upper quadrant clips. Calcified granulomas within the spleen. Vasculature: Multiple phleboliths within the pelvis. Bones/joints: Degenerative changes of the lumbar spine. No acute fractures or subluxations. The femoral heads are well seated within the bilateral acetabula. The pubic symphysis and sacroiliac joints are well aligned. XR/XR KUB [id number] IMPRESSION: A loop of small bowel within the left hemiabdomen measures up to 3.6 cm, concerning for ileus. Findings can be further evaluated with CT scan if clinically indicated.
[2024-02-20] MEDS: magnesium sulfate premix 2 GM/50 ML PIGGYBACK IV (09:43)
[2024-02-20 11:34] LABS: Glucose Point of Care 136 mg/dL (70-110)
[2024-02-20] MEDS: apixaban 5 mg Tablet PO (12:20)
--- NOTE | 2024-02-20 13:03 | P.PN_ITS ---
Subjective 2 Subjective: Patient states she feels better. She is passing gas. Magnesium 1.4 today. 2 g is ordered. Eliquis has been restarted. KUB reviewed from yesterday. No ileus seen. Abdomen is soft. Patient no longer having nausea or any abdominal pain. He would like to try a GI soft diet. She is able to tolerate oral liquids at this time. Patient sister was updated in detail over the phone. Vitals/I&O/Wt Last Vital Signs Temp 97.7 F 02/20/24 12:00 Pulse 15 L 02/20/24 12:00 Resp 52 H 02/20/24 12:00 BP 142/93 02/20/24 12:00 Pulse Ox 93 02/20/24 12:00 O2 Del Method Room Air 02/20/24 12:00 02/19/24 02/20/24 02/20/24 22:59 06:59 14:59 Intake Total 1410 / 2890 100 / 2990 1480 / 1480 Balance 1410 / 2890 100 / 2990 1480 / 1480 Weight last 48 hrs Weight 122.498 kg Weight 119.023 kg Physical Exam 2 Narrative: General: Patient is awake. Head: Normocephalic. Atraumatic. EOM intact. Dry mucous membranes. Cardiovascular: RRR. No murmurs. No peripheral edema. Lungs: Clear to auscultation, no use of accessory muscles, no crackles or wheezes. Abdomen: Bowel sounds normal active abdomen nontender to palpation Extremities: No cyanosis or clubbing. Musculoskeletal: No swollen or erythematous joints. Neurological: Moves all 4 extremities. Data 02/20/24 03:18 02/20/24 03:18 Micro: Microbiology 02/18/24 01:00 Urine Culture - Final Urine,Clean Catch Escherichia coli A&P Assessment and plan (1) Colitis: Stool studies ordered Continue ceftriaxone at this time. Continue metronidazole Continue on clear liquid diet. Follow-up KUB today. KUB yesterday showed possible ileus. Clear liquid diet PPI IV Antiemetics as needed. (2) Urinary tract infection: Reflux urinalysis to culture Ceftriaxone will cover. Qualifiers: Hematuria presence: with hematuria Urinary tract infection type: acute cystitis Qualified Code(s): N30.01 - Acute cystitis with hematuria (3) Acute hypokalemia: Secondary to GI loss Status post 40 mEq of IV potassium in the ED Will repeat potassium level in the morning (4) Acute kidney injury: Suspect prerenal due to GI loss Hold Lasix Start IV fluids Renally dose medications Trend labs (5) Atrial fibrillation: Patient reportedly in atrial fibrillation with RVR upon presentation to ED Status post IV beta-german with improvement in rate Continue home medications after nausea/vomiting improves Sotalol on hold at this time. Qualifiers: Atrial fibrillation type: paroxysmal Qualified Code(s): I48.0 - Paroxysmal atrial fibrillation (6) Hypertension: Hold home antihypertensives for now, reintroduce as clinical status improves Qualifiers: Hypertension type: primary hypertension Qualified Code(s): I10 - Essential (primary) hypertension (7) Depression with anxiety: Plan to continue home meds after update (8) Diabetes: Hold oral medications Sliding-scale insulin correction Qualifiers: Diabetes mellitus type: type 2 Diabetes mellitus termite technician insulin use: without termite technician use Diabetes mellitus complication status: without complication Qualified Code(s): E11.9 - Type 2 diabetes mellitus without complications (9) Hypothyroidism: Continue home Synthroid Qualifiers: Hypothyroidism type: unspecified Qualified Code(s): E03.9 - Hypothyroidism, unspecified Plan DVT prophylaxis: Apixaban CODE STATUS: Full code Today's plan 02/19 Transition to GI soft diet Patient at risk of refeeding as she states she has not had very good oral intake in the last 2 weeks. Check daily magnesium, phosphorus, BMP Replete magnesium today. 2 g given this morning. Eliquis to be continued. Sotalol being held at this time. Patient is slightly bradycardic in low 50s. Will need to address dosage prior to discharge. Updated patient's sister over the phone as well. ? Home Lasix being held at this time Stop IV fluids today. Patient's poor oral intake and possibility of initial ileus could be secondary to Ozempic intake. I will advise patient to stay off of this until seen by primary care doctor as an outpatient. Continue levothyroxine ? Continue to hold metformin at this time Low-dose intensity sliding scale insulin. Once patient able to have a bowel movement and tolerating oral diet, electrolytes have been repleted patient may be able to discharge home in the next 24 to 48 hours. Sotalol dosage will need to be addressed with cardiology prior to discharge. Attestations 2 Medical Necessity Statement*: Plan to discharge in next 24 to 48 hours. Diagnoses Colitis K52.9 Urinary tract infection N30.01 Hematuria presence: with hematuria Urinary tract infection type: acute cystitis Acute hypokalemia E87.6 Acute kidney injury N17.9 Paroxysmal atrial fibrillation I48.0 Atrial fibrillation type: paroxysmal Primary hypertension I10 Hypertension type: primary hypertension Depression with anxiety F41.8 Type 2 diabetes mellitus without complication, without long-term current use of insulin E11.9 Diabetes mellitus type: type 2 Diabetes mellitus termite technician insulin use: without custodial use Diabetes mellitus complication status: without complication Hypothyroidism, unspecified type E03.9 Hypothyroidism type: unspecified
[2024-02-20 17:02] LABS: Glucose Point of Care 142 mg/dL (70-110)
--- NOTE | 2024-02-20 17:31 | CTR_ITS ---
PROCEDURE INFORMATION: Exam: CT Abdomen And Pelvis With Contrast Exam date and time: 02/20/2024 5:45 PM Age: 63 years old Clinical indication: Prior surgery; Surgery date: 6+ months; Surgery type: Gb; Patient HX: Possible ileus noted on kub performed approximately two hours ago. ; Additional info: R/O perforation? TECHNIQUE: Imaging protocol: Computed tomography of the abdomen and pelvis with contrast. Radiation optimization: All CT scans at this facility use at least one of these dose optimization techniques: automated exposure control; mA and/or kV adjustment per patient size (includes targeted exams where dose is matched to clinical indication); or iterative reconstruction. Contrast material: OMNI 350; Contrast volume: 100 ml; Contrast route: INTRAVENOUS (IV); COMPARISON: CT abdomen pelvis wo con [id number] 02/17/2024 11:15 PM RADIATION DOSE METRICS: Total DLP (mGy-cm): 1118.24 FINDINGS: Liver: Normal. No mass. Gallbladder and biliary ducts: Status post cholecystectomy. Pancreas: Normal. No ductal dilation. Spleen: Calcified granulomas within the spleen. Adrenal glands: Normal. No mass. Kidneys and ureters: Abnormal hypoattenuating parenchyma within the inferior pole of the right kidney, concerning for infarct versus pyelonephritis. No hydronephrosis. Stomach and bowel: There is wall irregularity of the loop of small bowel in the left hemiabdomen (axial series 5, image 61) with surrounding edema and a small amount of gas, concerning for contained perforation. No overt pneumoperitoneum. No free fluid within the abdomen or pelvis. Appendix: No evidence of appendicitis. Intraperitoneal space: No overt pneumoperitoneum. No free fluid within the abdomen or pelvis. Vasculature: Severe atherosclerotic calcifications. Lymph nodes: Unremarkable. No enlarged lymph nodes. Urinary bladder: Unremarkable as visualized. Reproductive: Unremarkable as visualized. Bones/joints: Unremarkable. No acute fracture. Soft tissues: Unremarkable. CT/CT abdomen pelvis w con* [id number] IMPRESSION: 1. There is wall irregularity of the loop of small bowel in the left hemiabdomen (axial series 5, image 61) with surrounding edema and a small amount of gas, concerning for contained perforation. No overt pneumoperitoneum. No free fluid within the abdomen or pelvis. 2. Abnormal hypoattenuating parenchyma within the inferior pole of the right kidney, concerning for infarct versus pyelonephritis. COMMENTS: THIS REPORT CONTAINS FINDINGS THAT MAY BE CRITICAL TO PATIENT CARE. The exam findings were verbally communicated by me to Kaylyn Sauer via telephone conference at 6:17 PM CDT on 02/20/2024. The findings were acknowledged and understood.
--- NOTE | 2024-02-20 17:33 | W.PM.EVENTAC ---
Event Note Event Note: I just received a call from [facility] regarding patient's imaging findings from today. They discussed with me that the original CT abdomen pelvis done on 16 February may have missed a possible contained perforation where there is evidence of possible air as well. Radiology will be adding an addendum to the original CT results shortly. He states on today's KUB there is evidence of distended bowel loops and there is concern for pathological process. Radiology recommends to get a stat CT abdomen pelvis with IV contrast to ensure there is no perforation. I will consult general surgery and discussed the case with them at this point. Will make patient n.p.o. again. Will call patient's nurse to inform her of above information. Event Notes Attestations Time Spent in Patient Care: less than 15 minutes
[2024-02-20] MEDS: iohexol 350 mg/mL 500 mL Btl (per mL) IV (17:50)
[2024-02-20] MEDS: insulin lispro 100 unit/1 mL SUBCUT (18:27)
--- NOTE | 2024-02-20 19:08 | P.CONIM_ITS ---
Providers/Reason For Consult 2 Consulting Physician/Specialty*: Neto Fragoso MD general surgeon Reason for Consult*: evaluate abdominal pain Requesting Physician: MD Cristiane hospitalist Attending Physician: Kaylyn Sauer MD Primary Care Provider: Christianne Jiang MD History of Present Illness History of Present Illness Arun Minaya is a 63 year old female was admitted with two week history of abdominal pain with eating. Just prior to admission she had history of several loose stools but not bloody. She is supposed to be on eliquis for afib but she hasn't been on it because she forgot or intentionally avoided it. She has no history of CVA or FL. She had CT on 02/17/24 when she was admitted but read out as colitis. She was started on IV antibiotics for possible UTI. She was not restarted on eliquis in anticipation of possible surgery. She complained initally of crampy lower abdominal pain but now feels better and back to baseline with no clinically significant pain. Her WBC was 11k when admitted and now 6k and normal. She had repeat AXR for follow up of ileus and radiologist called Dr. Sauer recommending repeat CT scan for possible localized free air around bowel in LLQ. CT with contrast is showing this with possible infarct of right kidney and contained possible free air along small bowel in LLQ. On abdominal exam it is benign with no significant tenderness in LLQ and no rebound. Lactate is pending. CRP and procalcitonin pending. Review of Systems 2 Narrative: Constitutional: denies rigors, singnificant weight gain, increased appetite HEENT: denies chronic cough, blurry vision, excessive tearing, eye pain, flashing lights, odynophagia, painful mastication, change in voice, change in taste, chronic sore throat, hypersalivation Heart: denies racing heart, palpitations, othropnea, PND Lungs: denies hemoptysis, pain with deep inspiration, chronic bronchitis GI: denies hematemesis, hematochezia, dysphagia, tenesmus : denies polyuria, hematuria, painful micturation Musculoskeletal: denies hemarthrosis, Muscle wasting, change in amubation Neuro: denies new onset syncope, dysesthesia, dysequilibrium, ptosis eyelid or face SKin: denies new onset hyperalgia, new rash new cyanosis Endocrine: denies new polyuria, polydipsia, polyphagia, heat intolerance, excessive energy Hem/Onc: denies new petechiae, swollen glands, new excessive epstaxis Psych: denies racing thought Medications/Allergies Home Medications Medication Instructions Recorded Confirmed Last Taken Type acetaminophen 325 mg tablet 325 mg PO QID PRN Pain 02/16/23 02/18/24 Unknown History loratadine 10 mg tablet 10 mg PO DAILY 02/16/23 02/18/24 2 Weeks Ago History ~02/04/24 apixaban 5 mg tablet (Eliquis) 5 mg PO BID #60 tabs 07/05/23 02/18/24 2 Weeks Ago Rx ~02/04/24 buspirone 5 mg tablet 5 mg PO BID PRN anxiety #60 tabs 07/05/23 02/18/24 Unknown Rx levothyroxine 50 mcg tablet 50 mcg PO DAILY #30 tabs 07/05/23 02/18/24 2 Weeks Ago Rx ~02/04/24 magnesium oxide 400 mg PO DAILY #90 caps 07/05/23 02/18/24 2 Weeks Ago Rx ~02/04/24 potassium chloride 10 mEq 10 meq PO BID #180 tabs 07/05/23 02/18/24 Unknown Rx tablet,extended release simvastatin 40 mg tablet 40 mg PO DAILY #30 tabs 07/05/23 02/18/24 Unknown Rx sitagliptin phosphate 100 mg 100 mg PO DAILY #30 tabs 07/05/23 02/18/24 2 Weeks Ago Rx tablet (Januvia) ~02/04/24 empagliflozin 25 mg tablet 25 mg PO DAILY #30 tabs 10/01/23 02/18/24 2 Weeks Ago Rx (Jardiance) ~02/04/24 benzonatate 100 mg capsule 100 mg PO TID PRN cough #30 caps 10/29/23 02/18/24 Unknown Rx albuterol sulfate 90 mcg/actuation 2 puff inhalation QID PRN 11/08/23 02/18/24 Unknown Rx aerosol inhaler shortness of breath or wheezing #8.5 grams furosemide 40 mg tablet 40 mg PO DAILY #30 tabs 11/08/23 02/18/24 2 Weeks Ago Rx ~02/04/24 Shower chair #1 ea 11/16/23 02/18/24 Unknown Rx semaglutide 0.25 mg or 0.5 mg (2 0.25 mg (0.368 mL) SUBCUT .COMPLEX 12/07/23 02/18/24 Unknown Rx mg/3 mL) subcutaneous pen injector #3 mL (Ozempic) diphenoxylate-atropine 2.5 1 tab PO TID PRN diarrhea #20 tabs 02/08/24 02/18/24 Unknown Rx mg-0.025 mg tablet (Lomotil) metformin 500 mg tablet,extended 500 mg PO BID 02/18/24 02/18/24 2 Weeks Ago History release 24 hr ~02/04/24 ondansetron 4 mg disintegrating 4 mg PO DAILY PRN Nausea And 02/18/24 02/18/24 Unknown History tablet Vomiting paroxetine HCl 40 mg tablet 40 mg PO BEDTIME 02/18/24 02/18/24 2 Weeks Ago History ~02/04/24 sotalol 80 mg tablet 80 mg PO BID 02/18/24 02/18/24 2 Weeks Ago History ~02/04/24 vitamin B complex 1 tab PO DAILY 02/18/24 02/18/24 2 Weeks Ago History ~02/04/24 Allergies Allergy/AdvReac Type Severity Reaction Status Date / Time amoxicillin Allergy Mild ALGY-Hives Verified 12/20/23 11:02 lisinopril AdvReac Severe ADR-Cough Verified 12/20/23 11:02 metaxalone AdvReac Severe ADR-Diarrhe Verified 12/20/23 11:02 a codeine AdvReac Mild Messes Verified 12/20/23 11:02 with brain steroids AdvReac Mild Swelling Uncoded 12/20/23 11:02 Current Medications Generic Name Dose Route Start Last Admin Trade Name Freq PRN Reason Stop Dose Admin Apixaban 5 mg 02/20/24 12:00 02/20/24 12:20 Apixaban 5 Mg Tablet PO 5 mg BID ANGELICA Administration Ceftriaxone Sodium 1,000 mg 02/19/24 03:15 02/20/24 03:31 Ceftriaxone 1,000 Mg Sdv IVP 1,000 mg Q24H ANGELICA Administration Protocol Potassium Chloride/Sodium Chloride 20 meq in 1,000 mls @ 100 mls/hr 02/18/24 03:00 02/20/24 08:47 Sodium Chlor 0.9% + Kcl 20 Meq IV 100 mls/hr .Q10H ANGELICA Administration Metronidazole 500 mg in 100 mls @ 100 mls/hr 02/18/24 21:00 02/20/24 14:15 Flagyl Iv IV 100 mls/hr Q8H ANGELICA Administration Protocol Insulin Human Lispro 0 unit 02/18/24 08:00 02/20/24 18:27 Insulin Lispro 100 Unit/1 Ml SUBCUT 2 unit WM&BEDTIME ANGELICA Administration Protocol Metoclopramide HCl 5 mg 02/18/24 09:30 02/18/24 09:41 Metoclopramide 5 Mg/Ml Sdv 2 Ml IVP 5 mg Q8H PRN Administration NAUSEA AND VOMITING Pantoprazole Sodium 40 mg 02/18/24 03:00 02/20/24 14:15 Pantoprazole 40 Mg Sdv IVP 40 mg Q12H ANGELICA Administration Promethazine HCl 25 mg 02/18/24 04:14 02/18/24 05:09 Promethazine 25 Mg/Ml Sdv 1 Ml IM 25 mg ONCE PRN Administration NAUSEA PFSH Acute 2 PFSH: Medical History Hypertension Arthritis Surgical History S/P knee replacement S/P cholecystectomy Family History Mother Myocardial infarction S/P PTCA (percutaneous transluminal coronary angioplasty) Stroke Hyperlipidemia Father Myocardial infarction S/P PTCA (percutaneous transluminal coronary angioplasty) Hypertension Hyperlipidemia Sister Myocardial infarction S/P PTCA (percutaneous transluminal coronary angioplasty) Hypertension Diabetes Social History Smoking and tobacco/nicotine status: current every day tobacco/nicotine user cigarettes Packs smoked per day: 1 Years cigarettes smoked: 50 Vitals/I&O/Wt Last Vital Signs Temp 97.7 F 02/20/24 16:00 Pulse 47 L 02/20/24 16:00 Resp 16 02/20/24 16:00 BP 110/66 02/20/24 16:00 Pulse Ox 93 02/20/24 16:00 O2 Del Method Room Air 02/20/24 16:00 02/20/24 02/20/24 02/20/24 06:59 14:59 22:59 Intake Total 100 / 2990 1530 / 1530 240 / 1770 Balance 100 / 2990 1530 / 1530 240 / 1770 Weight last 48 hrs Weight 270 lb 1 oz Weight 262 lb 6.4 oz Physical Exam 2 Narrative: Patient is a well developed well nourished and in NAD and is afebrile with vitals stable and is answering questions appropriately with a normal affect and is alert and oriented x3 HEENT: normocephalic with normal external ears and nonicteric, oral mucosa moist and dentition normal for age, trachea midline with no large masses visualized Heart: RRR, no gallops murmurs or rubs, normal PMI with no thrills Lungs: normal excursions, no loud audible wheezing, no subcutaneous emphysema Abdomen: nondistended, no gross hepatosplenomegaly, no masses, no rigidity or rebound, no loud borborygmi, she points to lower abdomen where she was hurting before and there is no clinically significant tenderness here. Neuro: nonfocal, PETERSON, grossly normal sensation Musculoskeletal: good muscle tone, no fasciculations, normal gait Skin: pink warm and dry with no rashes or ecchymosis Vascular: good radial pulses, no ulceration, less than 2 second capillary refill in hand : deferred Data 02/20/24 03:18 02/20/24 03:18 Micro: Microbiology 02/18/24 01:00 Urine Culture - Final Urine,Clean Catch Escherichia coli A&P Assessment and plan (1) Ischemic bowel disease: Plan It is unclear how long she has been having this ischemic bowel disease. She states she has been having symptoms for a couple of weeks with worsening leading to admission on 02/17/24. If she has contained perforation, she does not need emergent surgery in light of benign exam, normal WBC and lactate, and with no radiologic evidence of free perforation. She will likely need IV heparin to anticoagulate her instead of eliquis because she may need urgent or emergent procedure. She would benefit in transfer to larger hospital with vascular surgery and IR capabilities. If she does require bowel resection because of worsening symptoms then she may need embolectomy/thrombectomy/endarterectomy done at same time with bowel resection and then delayed look laparotomy and with delayed anastomosis. She may even be candidate for embolectomy/thrombectomy/endarterectomy now without need for bowel resection. A source for clot needs to be performed as well. Specialist can direct investigation for this. Would keep NPO and would not stress bowel that is ischemic by feeding her. Feeding could lead to worsening ischemia. Consider TPN. Re introduce oral feedings slowly. Coding Level of Care Code 63694 Diagnoses Ischemic bowel disease K55.9
[2024-02-20 19:29] LABS: Lactic Sepsis W/Reflex 1.7 mmol/L (0.5-2.2)
[2024-02-20 19:30] LABS: Lactate Dehydrogenase 157 U/L (135-214)
[2024-02-20 19:37] LABS: C Reactive Protein 75.4 mg/L (0.0-4.9)
[2024-02-20 19:44] LABS: Procalcitonin 0.29 ng/mL (0-0.5)
[2024-02-20 20:16] LABS: Partial Thromboplastin Time 23.4 SECONDS (23.9-36.7)
[2024-02-20] MEDS: heparin drip 25,000 UNIT/500 ML PREMIX 34.3 UNIT IV (20:46)
[2024-02-20] MEDS: PARoxetine 20 mg Tablet 40 MG PO (20:51)
[2024-02-20 21:23] LABS: Glucose Point of Care 122 mg/dL (70-110)
[2024-02-21] VITALS (10 sets, daily range): BP systolic 142–175; BP diastolic 69–90; PULSE 47–55; RESP 15–18; TEMP 36.2–36.8; O2SAT 92–94
--- NOTE | 2024-02-21 01:17 | PM.MISC ---
Miscellaneous Note Note: Spoke with Dr. Ramesh, vascular surgeon at [facility]. He had reviewed her imaging. 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 He reported this thrombus did not need invasive vascular intervention. He recommended heparin drip. He recommended general surgery follow along and perform necessary procedure should patient get worse. Recommended trending lactic acid and monitoring white count for worsening condition. Recommended clear liquid diet for continued bowel rest. Will continue monitoring lactate, white count, and physical exam.
[2024-02-21] MEDS: cefTRIAXone 1,000 mg SDV 1000 MG IVP (02:33)
[2024-02-21] MEDS: pantoprazole 40 mg SDV IVP ×2 (02:34→16:27)
[2024-02-21 03:50] LABS: Phosphorus 2.1 mg/dL (2.5-4.5)
[2024-02-21 03:51] LABS: Anion Gap 13.7 (5-19); Blood Urea Nitrogen 7 mg/dL (8-23); Calcium 7.3 mg/dL (8.5-10.5); Carbon Dioxide 20 mmol/L (22-29); Chloride 103 mmol/L (98-107); Creatinine Clr Calc Pharmacy 134.0414; Glomerular Filtration Rate 101.3 mL/min (90-130); Glucose 131 mg/dL (65-115); Magnesium 1.4 mg/dL (1.7-2.3); Osmolality Calculated 276 mOsm/kg (285-295); Potassium 3.7 mmol/L (3.5-5.1); Sodium 133 mmol/L (136-145)
[2024-02-21 04:00] LABS: Partial Thromboplastin Time 174.6 SECONDS (23.9-36.7)
[2024-02-21] MEDS: metroNIDAZOLE IV 500 MG/100 ML PREMIX 100 MG IV (04:09)
[2024-02-21] MEDS: acetaminophen 325 mg Tablet 650 MG PO ×2 (04:11→16:31)
--- NOTE | 2024-02-21 04:14 | PC.NURSE ---
Contacted Dr Hull about pts PTT results of 176 and he advised to hold heparin infusion for two hours and then draw a repeat lab; orders were put in as directed
[2024-02-21 06:26] LABS: Glucose Point of Care 118 mg/dL (70-110)
[2024-02-21 06:46] LABS: Lactate (Lactic Acid level) 0.7 mmol/L (0.5-2.2)
--- NOTE | 2024-02-21 07:02 | P.PN_ITS ---
Subjective 2 Subjective: This is a 63-year-old female who was admitted 3 days ago with abdominal pain, CT scan of the abdomen and pelvis initially was read as normal but upon review of radiologist it was noted that she may have a possible contained perforation of the small bowel in the left lower quadrant and CT with contrast was repeated yesterday which show evidence of SMA thrombosis. She was started on anticoagulation. Patient was evaluated by my colleague Dr. Gil, initial recommendation was to transfer to high-level care for vascular surgery evaluation, vascular surgeon was contacted at one of the hospitals who recommended no need for transfer at this point as they might not be able to do an embolectomy. On examination this morning she is doing well no abdominal pain no nausea no vomit no diarrhea no current issues. Vitals/I&O/Wt Last Vital Signs Temp 98.2 F 02/21/24 04:00 Pulse 48 L 02/21/24 05:11 Resp 16 02/21/24 04:00 BP 147/79 02/21/24 04:00 Pulse Ox 93 02/21/24 04:00 O2 Del Method Room Air 02/21/24 04:00 02/20/24 02/21/24 02/21/24 22:59 06:59 14:59 Intake Total 1440 / 2970 248.675 / 3218.675 Balance 1440 / 2970 248.675 / 3218.675 Weight last 48 hrs Weight 274 lb 9 oz Weight 270 lb 1 oz Physical Exam 2 GI: OTHER: Abdomen is soft, nontender, nondistended. Data 02/20/24 03:18 02/21/24 03:21 Micro: Microbiology 02/18/24 01:00 Urine Culture - Final Urine,Clean Catch Escherichia coli A&P Assessment and plan (1) Ischemic bowel disease: (2) Colitis: Plan Their complete history physical examination and review of all available clinical data the following is my assessment. I have reviewed imaging and laboratory workup and Discussed the case with Dr. Zhao. I also reviewed the note from Dr. Brice stating that vascular surgery evaluated the images and they do not think there is need for embolectomy at this point. Patient current current clinical condition is a stable, she does not have peritoneal signs she does not have abdominal pain no fever no chills white count is normal. Despite all this findings I think the best option for this patient is transferred to higher level of care to a facility with vascular interventional radiology and vascular surgery availability. I think the reason of this patient to progress to a point where she needs immediate surgery is very high, any kind of surgical intervention in this patient she will be accompanied of arterial embolectomy to improve the chances of bowel recovery, as mesenteric ischemia has high mortality rate of after 70%. If embolectomy is not deemed appropriate by vascular surgeon patient at least will require mesenteric angiogram to verify that there is good collateral circulation. In addition in the case of proceeding with surgical intervention patient will need likely management of open abdomen and landfill attendant support during the acute period. I therefore recommend immediate transfer to higher level of care of this patient, likely to the [facility] for evaluation for vascular and interventional radiology and planning for possible surgical intervention with embolectomy. I cannot provide the services in our institution. Immediate transfer is recommended as the longer time from initial thromboembolic event of revascularization can result in further bowel loss. I explained to the patient that in the case of being unable to get her to high- level care facility we might need to take her to the operating room and do a resection but without ability of reconstructive verified arterial supply there is high chance of mortality. Patient shows understanding. In the interim I recommend broad-spectrum antibiotics and to keep the patient NPO. -Urgent transfer to higher level of care for vascular evaluation as well as possible mesenteric angiogram. -Continue serial abdominal exams -N.p.o. -IV fluids -Broad-spectrum antibiotics Attestations 2 Medical Necessity Statement*: Patient will require transfer to higher level of care for interventional radiology and vascular evaluation for possible mesenteric and diagram and embolectomy of SMA thrombus that was verified by imaging. Coding Level of Care Code Acute Code for [facility] Diagnoses Ischemic bowel disease K55.9 Colitis K52.9
[2024-02-21 07:08] LABS: Partial Thromboplastin Time 46.9 SECONDS (23.9-36.7)
[2024-02-21 08:55] LABS: Basophils % 0.2 %; Eosinophils # 0.3 10^3/uL (0.0-0.8); Eosinophils % 5.2 %; Hematocrit 39.6 % (36-47); Lymphocytes # 1.1 10^3/uL (0.8-4.8); Lymphocytes % 21.1 %; Mean Corpuscular HGB Conc 32.8 g/dL (30-55); Mean Corpuscular Hemoglobin 31.2 pg (27-33); Mean Platelet Volume 11.1 fL (7.4-10.4); Monocytes # 0.6 10^3/uL (0.2-0.9); Monocytes % 10.3 %; Neutrophils # 3.38 10^3/uL (1.8-7.7); Nucleated Red Blood Cells % 0 %; Platelet Count 129 10^3/cmm (157-399); Red Blood Count 4.17 10^6/uL (3.85-5.65); Red Cell Distribution Width 13.6 % (12.1-15.1); White Blood Count 5.36 10^3/uL (3.29-11.43)
--- NOTE | 2024-02-21 09:03 | PC.CHAP ---
Pastoral Care Encounter/Spiritual Assessment Type of Contact [] Declined volleyball assistant coach visit [] Patient/Family/Request visit [] Outpatient visit [] Follow-up visit [] Physician referral [] Code/Alert [x] Routine visit [] Staff referral [] Actively dying [] Patient sleeping [] Family support [] [] Out of room [] Palliative care [] [x] Receiving care in room [] Pre-surgical visit [] Trauma [] Long length of stay [] ICU visit [] Other: Relational/Emotional Strength [] Patient feels connected with others/family/visitors/staff [] Distress [] Loneliness/isolation [] Abandonment Spirituality of Patient [] Person of Ivy [] Attends Lutheran of their Ivy [] Believes in Prayer [] Reads Bible or Taoism materials [] There are Spiritual issues to be addressed [employer] Interventions [] Prayer [] Active listening [] Non-anxious presence [] Spiritual/emotional support [] Crisis/trauma care [] Spiritual counseling [] Bereavement support [] Provided bereavement packet [] Provided Bible/devotional materials [] Provided toy/stuffed animal, coloring book to patient or family member [] Provided Communion [] Anointing/[place] [] Salvation [] Completed spiritual assessment [] Other: Impact on Illness or Injury [] Angry [] Fearful [] Anxious [] Often cries [] Exhaustion [] Unable to work [] Unable to attend zoroastrian [] Unable to walk/stand [] Unable to read [] Unable to drive [] Unable to eat/drink [] Unable to sleep [] Unable to be with family [] Patient intubated [] Other: Summary Time spent with patient
[2024-02-21] MEDS: levothyroxine 50 mcg Tablet PO (09:16)
[2024-02-21] MEDS: magnesium sulfate premix 1 GM/100 ML PIGGYBACK IV (09:16)
--- NOTE | 2024-02-21 09:30 | USCV_ITS ---
Rei, Relata Age: 63 Gender: F : 1960 Exam Date: 02/21/2024 08:37 Ordering Phys: Kaylyn Sauer MD Technologist: Exam Location: [facility] [place] Indication: ? renal stenosis Aortic Velocity @ SMA (cm/s) 75.1 RIGHT KIDNEY LEFT KIDNEY Velocity (cm/s) Velocity (cm/s) Sys/Maldonado Sys/Maldonado Resistive Index Resistive Index 33.0 / 9.0 0.72 Proximal Renal Artery 67.0 / 16.0 0.76 36.0 / 10.0 0.72 Mid Renal Artery 51.0 / 15.0 0.71 33.0 / 9.0 0.72 Distal Renal Artery 54.0 / 15.0 0.72 24.0 / 7.0 0.68 Hilar 51.0 / 13.0 0.73 14.0 / 5.0 0.65 Upper Pole 35.0 / 11.0 0.68 25.0 / 7.0 0.71 Mid Pole 44.0 / 11.0 0.75 17.0 / 8.0 0.51 Lower Pole 51.0 / 13.0 0.69 0.90 Renal Aortic Ratio 0.89 Accleration Time (sec) 0.23 Hilar 0.28 0.37 Upper Pole 0.23 0.24 Mid Pole 0.37 0.17 Lower Pole 0.26 10.1 Kidney Length (cm) 11.6 FINDINGS Normal size kidneys with mild cortical thinning. No evidence of abdominal aortic aneurysm. There is no evidence of hemodynamically significant right renal artery stenosis. There is no evidence of hemodynamically significant left renal artery stenosis. CONCLUSIONS There is no sonographic evidence of hemodynamically significant renal artery stenosis bilaterally. Dr. Darcy Dan DO (Electronically Signed) Final Date: 21 February 2024 09:37 S
[2024-02-21] MEDS: lidocaine 1% 5 ML in potassium chloride premix 100 ML 26.25 ML IV (10:46)
[2024-02-21 11:00] LABS: C.Diff PCR (Lab) NEGATIVE (Negative)
[2024-02-21 11:15] LABS: Glucose Point of Care 117 mg/dL (70-110)
--- NOTE | 2024-02-21 13:02 | PM.PN ---
Subjective Subjective: [facility] has not accepted the transfer, will try [facility], general surgery has recommended transfer for revascularization of SMA Patient is not showing any sign of acidosis, white count is normal, no fever, lactic acid is normal Patient had a bowel movement today as well Currently on heparin drip Patient does endorse not taking Eliquis consistently and compliantly. She carries history of A-fib. Vitals/I&O/Wt Last Vital Signs Temp 97.5 F L 02/21/24 11:18 Pulse 47 L 02/21/24 11:18 Resp 16 02/21/24 11:18 BP 155/79 02/21/24 11:18 Pulse Ox 92 02/21/24 11:18 O2 Del Method Room Air 02/21/24 07:47 02/20/24 02/21/24 02/21/24 22:59 06:59 14:59 Intake Total 1440 / 2970 248.675 / 3218.675 200 / 200 Balance 1440 / 2970 248.675 / 3218.675 200 / 200 Weight last 48 hrs Weight 124.539 kg Weight 122.498 kg Physical Exam Narrative: Sitting comfortably No active pain Had a bowel movement Bowel sounds positive GCS 15 nonfocal neuroexam Pleasant cooperative nonfocal neuroexam S1, S2 bradycardia overnight Data 02/21/24 03:21 02/21/24 03:21 Micro: Microbiology 02/18/24 01:00 Urine Culture - Final Urine,Clean Catch Escherichia coli A&P Assessment and plan (1) Atrial fibrillation: Qualifiers: Atrial fibrillation type: paroxysmal Qualified Code(s): I48.0 - Paroxysmal atrial fibrillation (2) Diabetes: Qualifiers: Diabetes mellitus type: type 2 Diabetes mellitus group home insulin use: without remote computer terminal operator use Diabetes mellitus complication status: without complication Qualified Code(s): E11.9 - Type 2 diabetes mellitus without complications (3) Hypothyroidism: Qualifiers: Hypothyroidism type: unspecified Qualified Code(s): E03.9 - Hypothyroidism, unspecified (4) Ischemic bowel disease: (5) Colitis: (6) Acute kidney injury: (7) Acute hypokalemia: (8) Hypomagnesemia: (9) Hypokalemia: Plan Contained microperforation no Acidosis, fever or worsening of leukocytosis No active sepsis Currently on broad-spectrum antibiotics Appreciate general surgery recommendations SMA occlusion currently on heparin drip will need revascularization will touch base with [facility] has declined the transfer Patient most likely has thromboembolic disease that happened secondary to A-fib and noncompliance with Eliquis Colitis diverticulitis: Ischemic colon with microperforation We are seeking transfer for IR versus vascular intervention at the tertiary center for revascularization of SMA Patient clinically stable for now on MedSurg Consideration for renal infarct however ultrasound negative, Full code Keep the patient n.p.o. Attestations Medical Necessity Statement*: Continue medical management Diagnoses Paroxysmal atrial fibrillation I48.0 Atrial fibrillation type: paroxysmal Type 2 diabetes mellitus without complication, without long-term current use of insulin E11.9 Diabetes mellitus type: type 2 Diabetes mellitus group home insulin use: without remote computer terminal operator use Diabetes mellitus complication status: without complication Hypothyroidism, unspecified type E03.9 Hypothyroidism type: unspecified Ischemic bowel disease K55.9 Colitis K52.9 Acute kidney injury N17.9 Acute hypokalemia E87.6 Hypomagnesemia E83.42 Hypokalemia E87.6
[2024-02-21 15:00] LABS: Lactate (Lactic Acid level) 0.7 mmol/L (0.5-2.2)
[2024-02-21] MEDS: heparin drip 25,000 UNIT/500 ML PREMIX 38 UNIT IV (15:02)
[2024-02-21 15:05] LABS: Partial Thromboplastin Time > 250.0 SECONDS (23.9-36.7)
[2024-02-21] MEDS: piperacillin-tazobactam 3.375 GM in sodium chloride 0.9% (plus) 50 ML IV ×2 (15:11→21:54)
[2024-02-21] MEDS: sodium chlor 0.9% + KCl 20 mEq 20 MEQ/1,000 ML BAG 100 MEQ IV (16:27)
[2024-02-21 17:01] LABS: Glucose Point of Care 110 mg/dL (70-110)
--- NOTE | 2024-02-21 17:10 | P.MISC_ITS ---
Miscellaneous Note Purpose of Documentation: Update on patient care Note: 63-year-old female who presented with po ssible mesenteric thrombosis and a possible contained small bowel perforation in imaging. Her case has been discussed now with 2 different vascular surgeons at 2 different institutions who recommend no need for emergent intervention for revascularization, continue medical management and muscle metering closely for the possibility of developing peritonitis requiring surgical intervention. I evaluated the patient this afternoon and I informed her of the findings, she has not had any abdominal pain, no nausea or vomiting, no tenderness in the abdomen, has been passing gas and had a bowel movement that was liquid according to the patient was brown no evidence of blood. Physical examination is unremarkable at this time. Had extensive discussion with the patient and informed her that she is still at high risk for the possibility of bowel perforation or progression to bowel necrosis requiring surgical intervention. We will continue to monitoring vital signs, trending lactate CRP and D-dimer levels as well as white count and we will continue her on broad-spectrum antibiotics and heparin drip. I will start her on a clear liquid diet. She has been informed that if she has any abdominal pain, nausea or vomit or any other symptoms to let us know immediately and to stop the diet, I also asked the patient to let the nursing staff know after next bowel movement to ensure that there is no blood in the stool or melena. The patient appears to tolerate clear liquid diet we will slowly advance diet as tolerated over the next 3 to 4 days. If patient does not tolerate clear liquid diet, there is clinical deterioration or any other changes on her clinical status we will proceed with diagnostic laparoscopy possible exploratory laparo mauricio. Patient shows understanding is agreeable with the plan, she wants her sister to be by her side and she is traveling from [place] and will be here tomorrow morning.
[2024-02-21] MEDS: PARoxetine 20 mg Tablet 40 MG PO (20:39)
[2024-02-21 20:45] LABS: Glucose Point of Care 128 mg/dL (70-110)
[2024-02-21 21:35] LABS: Partial Thromboplastin Time 29.2 SECONDS (23.9-36.7)
[2024-02-21 21:43] LABS: Lactate (Lactic Acid level) 0.7 mmol/L (0.5-2.2)
[2024-02-22] VITALS (8 sets, daily range): BP systolic 144–167; BP diastolic 73–89; PULSE 45–64; RESP 16–17; TEMP 36.4–36.8; O2SAT 92–95
[2024-02-22] MEDS: sodium chlor 0.9% + KCl 20 mEq 20 MEQ/1,000 ML BAG 100 MEQ IV (03:02)
[2024-02-22] MEDS: pantoprazole 40 mg SDV IVP ×2 (03:02→13:57)
[2024-02-22] MEDS: piperacillin-tazobactam 3.375 GM in sodium chloride 0.9% (plus) 50 ML IV ×3 (04:34→21:27)
[2024-02-22 05:21] LABS: Basophils % 0.2 %; Eosinophils # 0.3 10^3/uL (0.0-0.8); Eosinophils % 5.7 %; Hematocrit 39.8 % (36-47); Lymphocytes % 22.2 %; Mean Corpuscular HGB Conc 32.7 g/dL (30-55); Mean Corpuscular Hemoglobin 31.4 pg (27-33); Mean Corpuscular Volume 96.1 fl (85-98); Mean Platelet Volume 10.7 fL (7.4-10.4); Monocytes # 0.4 10^3/uL (0.2-0.9); Monocytes % 9.2 %; Neutrophils # 2.81 10^3/uL (1.8-7.7); Neutrophils % 61.8 %; Nucleated Red Blood Cells % 0 %; Platelet Count 133 10^3/cmm (157-399); Red Blood Count 4.14 10^6/uL (3.85-5.65); Red Cell Distribution Width 13.2 % (12.1-15.1); White Blood Count 4.55 10^3/uL (3.29-11.43)
[2024-02-22 05:44] LABS: Anion Gap 15.1 (5-19); Blood Urea Nitrogen 4 mg/dL (8-23); Calcium 7.5 mg/dL (8.5-10.5); Carbon Dioxide 20 mmol/L (22-29); Chloride 105 mmol/L (98-107); Creatinine Clr Calc Pharmacy 135.7818; Glomerular Filtration Rate 101.3 mL/min (90-130); Glucose 126 mg/dL (65-115); Osmolality Calculated 280 mOsm/kg (285-295); Potassium 4.1 mmol/L (3.5-5.1); Sodium 136 mmol/L (136-145)
[2024-02-22 05:45] LABS: C Reactive Protein 40.6 mg/L (0.0-4.9); Lactate (Lactic Acid level) 0.9 mmol/L (0.5-2.2)
[2024-02-22 06:01] LABS: D Dimer 1.45 ug/mLFEU (0-0.59)
[2024-02-22 06:21] LABS: Glucose Point of Care 113 mg/dL (70-110)
[2024-02-22 06:40] LABS: Partial Thromboplastin Time 207.3 SECONDS (23.9-36.7)
[2024-02-22] MEDS: levothyroxine 50 mcg Tablet PO (08:08)
--- NOTE | 2024-02-22 09:00 | PC.CHAP ---
Pastoral Care Encounter/Spiritual Assessment Type of Contact [] Declined crochet beader visit [] Patient/Family/Request visit [] Outpatient visit [] Follow-up visit [] Physician referral [] Code/Alert [x] Routine visit [] Staff referral [] Actively dying [] Patient sleeping [x] Family support [] [] Out of room [] Palliative care [] [] Receiving care in room [] Pre-surgical visit [] Trauma [] Long length of stay [] ICU visit [] Other: Relational/Emotional Strength [x] Patient feels connected with others/family/visitors/staff [] Distress [] Loneliness/isolation [] Abandonment Spirituality of Patient [x] Person of Ivy [] Attends Lutheran of their Ivy [x] Believes in Prayer [] Reads Bible or Nondenominational materials [] There are Spiritual issues to be addressed Remelt Pan Tank Operator Interventions [x] Prayer [x Active listening [x] Non-anxious presence [x] Spiritual/emotional support [] Crisis/trauma care [] Spiritual counseling [] Bereavement support [] Provided bereavement packet [] Provided Bible/devotional materials [] Provided toy/stuffed animal, coloring book to patient or family member [] Provided Communion [] Anointing/[place] [] Salvation [x] Completed spiritual assessment [] Other: Impact on Illness or Injury [] Angry [] Fearful [] Anxious [] Often cries [] Exhaustion [] Unable to work [] Unable to attend christianity [] Unable to walk/stand [] Unable to read [] Unable to drive [] Unable to eat/drink [] Unable to sleep [] Unable to be with family [] Patient intubated [] Other: Summary Time spent with patient 5 min
--- NOTE | 2024-02-22 10:02 | P.PN_ITS ---
Subjective 2 Subjective: 63-year-old female with chronic mesenter ic ischemia. Patient is doing well this morning, has tolerated clear liquid diet, no abdominal pain no abdominal tenderness, has continued to have bowel movements are liquid in nature with no evidence of blood in the stool. She is in good spirits. She is hungry. Vitals/I&O/Wt Last Vital Signs Temp 97.6 F 02/22/24 07:50 Pulse 50 L 02/22/24 07:50 Resp 17 02/22/24 07:50 BP 163/89 02/22/24 07:50 Pulse Ox 93 02/22/24 07:50 O2 Del Method Room Air 02/22/24 07:50 02/21/24 02/22/24 02/22/24 22:59 06:59 14:59 Intake Total 1650.758 / 9780.541 4557.833 / 3220.591 470 / 470 Balance 1650.758 / 1278.427 4951.833 / 3220.591 470 / 470 Weight last 48 hrs Weight 276 lb 5 oz Weight 274 lb 9 oz Physical Exam 2 Narrative: General : Patient is well developed , no acute distress, oriented x3 Head : Normal cephalic, a-traumatic. Nose : Mucous membranes are without erythema. Lungs : Equal chest rise bilaterally, no use of accessory muscles, trachea is midline. CV : Rate and rhythm are normal. Abdomen : Soft, ND, NT, no g/r/m Extremities : No edema. Upper extremities are normal bilaterally. Back : non-tender to palpation, no CVA tenderness. Data 02/22/24 04:17 02/22/24 04:17 A&P Assessment and plan (1) Ischemic bowel disease: Plan Patient is showing good progression after conservative management of chronic mesenteric ischemia, I had extensive discussion with the patient and family member at the bedside Informed and that she is still extremely high risk candidate for the need for surgical intervention especially if there is any changes in abdominal exam or physical decompensation. Will continue clear liquid diet for today by tomorrow patient is tolerating feeling well we will transition to full liquid diet. We will continue anticoagulation as better by primary team. We will continue to monitor lactic levels D-dimer levels as well as CRP. Patient family members understanding regarding clinical condition and agreeable with the plan. -Continue clear liquid diet -Continue daily labs -Continue IV antibiotics -Continue IV heparin Attestations 2 Medical Necessity Statement*: Per medical team Coding Level of Care Code Acute Code for Chg Fwd Diagnoses Ischemic bowel disease K55.9
--- NOTE | 2024-02-22 10:55 | P.PN_ITS ---
Subjective 2 Subjective: patient has had 2 bowel movements, loose stools, No worsening of leukocytosis, lactic acid normal No fever hemodynamic stable No abdominal pain, patient tolerating diet clear liquids Sister at the bedside Patient is stating that she will go with her sister to [place] after she is discharged I will change her IV fluids to D5 LR discontinue potassium supplementation potassium is improved Appreciate general surgery recommendations Continue clear liquid diet Holding off on heparin for 4 to 6 hours recheck APTT and then restart by decreasing 2 units from before Patient bradycardia overnight when she sleeps No previous diagnosis of sick sinus syndrome Vitals/I&O/Wt Last Vital Signs Temp 97.6 F 02/22/24 07:50 Pulse 50 L 02/22/24 07:50 Resp 17 02/22/24 07:50 BP 163/89 02/22/24 07:50 Pulse Ox 93 02/22/24 07:50 O2 Del Method Room Air 02/22/24 07:50 02/21/24 02/22/24 02/22/24 22:59 06:59 14:59 Intake Total 1650.758 / 0669.283 2602.833 / 3220.591 470 / 470 Balance 1650.758 / 5000.757 2314.833 / 3220.591 470 / 470 Weight last 48 hrs Weight 125.333 kg Weight 124.539 kg Physical Exam 2 Narrative: Awake and alert Euvolemic Abdomen nontender Bowel sound present GCS 15 Sister at the bedside Hemodynamically stable Currently on room air S1, S2 Data 02/22/24 04:17 02/22/24 04:17 A&P Assessment and plan (1) Atrial fibrillation: Qualifiers: Atrial fibrillation type: paroxysmal Qualified Code(s): I48.0 - Paroxysmal atrial fibrillation (2) Diabetes: Qualifiers: Diabetes mellitus type: type 2 Diabetes mellitus intermediate teacher insulin use: without long-term use Diabetes mellitus complication status: without complication Qualified Code(s): E11.9 - Type 2 diabetes mellitus without complications (3) Ischemic bowel disease: (4) Acute hypokalemia: (5) Mesenteric angina: (6) Superior mesenteric artery thrombosis: (7) Renal infarct: Plan Patient most likely developed SMA thrombus or renal infarct from thrombus in the heart with A-fib she has not compliant with anticoagulating agent currently on heparin drip [facility] recommended outpatient evaluation no acute intervention recommended by vascular surgeon General surgery recommended conservative management for microperforation which is contained, 2 bowel movements in last 24 hours Patient is not showing any sign of worsening she is tolerating clear liquid diet no leukocytosis lactic acid is normal, no fever Change IV fluids to D5 LR Continue clear liquid diet Continue heparin drip Patient will need Eliquis at the time of discharge along antibiotics, optimize antihypertensive regimen Full code Inflammatory markers trending down Attestations 2 Medical Necessity Statement*: Continue treatment for SMA thrombus and microperforation Diagnoses Paroxysmal atrial fibrillation I48.0 Atrial fibrillation type: paroxysmal Type 2 diabetes mellitus without complication, without long-term current use of insulin E11.9 Diabetes mellitus type: type 2 Diabetes mellitus long-term insulin use: without intermediate teacher use Diabetes mellitus complication status: without complication Ischemic bowel disease K55.9 Acute hypokalemia E87.6 Mesenteric angina K55.1 Superior mesenteric artery thrombosis K55.069 Renal infarct N28.0
[2024-02-22] MEDS: dextrose 5%-lactated ringers 1,000 ML 75 ML IV ×2 (11:05→23:15)
[2024-02-22] MEDS: insulin lispro 100 unit/1 mL SUBCUT ×3 (11:05→21:25)
[2024-02-22 11:18] LABS: Glucose Point of Care 141 mg/dL (70-110)
[2024-02-22 11:29] LABS: Partial Thromboplastin Time 33.6 SECONDS (23.9-36.7)
[2024-02-22] MEDS: heparin drip 25,000 UNIT/500 ML PREMIX 34.3 UNIT IV (15:58)
[2024-02-22 16:05] LABS: Glucose Point of Care 141 mg/dL (70-110)
[2024-02-22 20:51] LABS: Partial Thromboplastin Time 107.2 SECONDS (23.9-36.7)
[2024-02-22 21:10] LABS: Glucose Point of Care 155 mg/dL (70-110)
[2024-02-22] MEDS: PARoxetine 20 mg Tablet 40 MG PO (21:27)
[2024-02-23] VITALS (8 sets, daily range): BP systolic 149–174; BP diastolic 74–96; PULSE 45–65; RESP 17–19; TEMP 36.4–36.7; O2SAT 93–94
[2024-02-23] MEDS: pantoprazole 40 mg SDV IVP ×2 (02:51→14:38)
[2024-02-23 03:17] LABS: Basophils % 0.4 %; Eosinophils # 0.3 10^3/uL (0.0-0.8); Eosinophils % 6.5 %; Hematocrit 37.8 % (36-47); Lymphocytes # 1.9 10^3/uL (0.8-4.8); Lymphocytes % 35.9 %; Mean Corpuscular HGB Conc 33.6 g/dL (30-55); Mean Corpuscular Hemoglobin 31.1 pg (27-33); Mean Corpuscular Volume 92.6 fl (85-98); Mean Platelet Volume 9.8 fL (7.4-10.4); Monocytes # 0.6 10^3/uL (0.2-0.9); Monocytes % 11.3 %; Neutrophils # 2.35 10^3/uL (1.8-7.7); Neutrophils % 44.9 %; Nucleated Red Blood Cells % 0 %; Platelet Count 133 10^3/cmm (157-399); Red Blood Count 4.08 10^6/uL (3.85-5.65); Red Cell Distribution Width 13.4 % (12.1-15.1); White Blood Count 5.23 10^3/uL (3.29-11.43)
[2024-02-23 03:37] LABS: Anion Gap 12.8 (5-19); Blood Urea Nitrogen 2 mg/dL (8-23); Calcium 7.5 mg/dL (8.5-10.5); Carbon Dioxide 23 mmol/L (22-29); Chloride 107 mmol/L (98-107); Creatinine Clr Calc Pharmacy 133.8849; Glomerular Filtration Rate 101.3 mL/min (90-130); Glucose 137 mg/dL (65-115); Osmolality Calculated 286 mOsm/kg (285-295); Potassium 3.8 mmol/L (3.5-5.1); Sodium 139 mmol/L (136-145)
[2024-02-23 04:10] LABS: Partial Thromboplastin Time 169.6 SECONDS (23.9-36.7)
[2024-02-23] MEDS: piperacillin-tazobactam 3.375 GM in sodium chloride 0.9% (plus) 50 ML IV ×3 (04:56→21:16)
--- NOTE | 2024-02-23 06:05 | XRR_ITS ---
PROCEDURE INFORMATION: Exam: XR Abdomen Exam date and time: 02/23/2024 6:34 AM Age: 63 years old Clinical indication: Abdominal pain; Acute; Prior surgery; Surgery date: 6+ months; Surgery type: Gb; Additional info: Follow up abdominal pain TECHNIQUE: Imaging protocol: Radiologic exam of the abdomen. Views: Frontal supine view of the abdomen. 1 View. COMPARISON: CT abdomen pelvis w con* [id number] 02/20/2024 5:45 PM FINDINGS: Gastrointestinal tract: The bowel gas pattern is within normal limits. There is no evidence of bowel obstruction. Intraperitoneal space: There is no gross evidence of pneumoperitoneum on the supine projections. Organs: Postsurgical changes of cholecystectomy are noted. Bones/joints: Unremarkable. XR/XR abdomen 1V* [id number] IMPRESSION: No acute abnormality
[2024-02-23 06:29] LABS: Glucose Point of Care 136 mg/dL (70-110)
--- NOTE | 2024-02-23 07:50 | P.PN_ITS ---
Subjective 2 Subjective: Patient is doing well this morning, denies any abdominal pain, still having liquid bowel movements brownish in nature no evidence of blood in the stool. No fever no chills no other constitutional symptoms, has been walking. Vitals/I&O/Wt Last Vital Signs Temp 97.5 F L 02/23/24 07:28 Pulse 57 L 02/23/24 07:28 Resp 17 02/23/24 07:28 BP 174/96 02/23/24 07:28 Pulse Ox 93 02/23/24 07:28 O2 Del Method Room Air 02/23/24 07:28 02/22/24 02/23/24 02/23/24 22:59 06:59 14:59 Intake Total 594.127 / 6045.761 8305.467 / 2325.594 Balance 594.127 / 0695.869 0955.467 / 2325.594 Weight last 48 hrs Weight 269 lb 3 oz Weight 269 lb 8 oz Weight 276 lb 5 oz Physical Exam 2 GI: OTHER: Abdominal exam is completely benign, abdomen is soft nontender and nondistended. Data 02/23/24 03:10 02/23/24 03:10 A&P Assessment and plan (1) Mesenteric angina: (2) Superior mesenteric artery thrombosis: Plan Patient with chronic mesenteric ischemia because receiving conservative management with IV heparin. Patient is feeling well, no significant abdominal pain at this point. Has been tolerating clear liquid diet for the last 48 hours. Laboratory workup has remained unremarkable, CRP has been steadily trending down lactic levels are normal. Abdominal x-ray obtained this morning appears to be unremarkable but radiology interpretation is pending. We will advance diet to full liquid diet, will plan to keep full liquid diet over the next 48 hours and evaluate progression. We may repeat a CT scan of the abdomen and pelvis by the end of the week to evaluate for any significant changes before deciding on proceeding with regular diet. -Full liquid diet -Continue to antibiotics -Continue heparin drip -Will continue to trend labs. Attestations 2 Medical Necessity Statement*: Per medical team Coding Level of Care Code Acute Code for g Fwd Diagnoses Mesenteric angina K55.1 Superior mesenteric artery thrombosis K55.069
[2024-02-23] MEDS: levothyroxine 50 mcg Tablet PO (08:16)
[2024-02-23 08:26] LABS: Partial Thromboplastin Time 33.9 SECONDS (23.9-36.7)
[2024-02-23 11:32] LABS: Glucose Point of Care 151 mg/dL (70-110)
--- NOTE | 2024-02-23 11:36 | P.PN_ITS ---
Subjective 2 Subjective: 3 bowel movements, loose stools in last 48 hours No leukocytosis or lactic acidemia Patient endorsing feeling better Diet advanced to full liquid No abdominal pain Adjust heparin dosing She will need Eliquis at the time of discharge Continue Zosyn IV fluids discontinued Vitals/I&O/Wt Last Vital Signs Temp 97.5 F L 02/23/24 07:28 Pulse 57 L 02/23/24 07:28 Resp 17 02/23/24 07:28 BP 174/96 02/23/24 07:28 Pulse Ox 93 02/23/24 07:28 O2 Del Method Room Air 02/23/24 07:28 02/22/24 02/23/24 02/23/24 22:59 06:59 14:59 Intake Total 594.127 / 5582.313 8188.467 / 2325.594 530 / 530 Balance 594.127 / 7414.076 0588.467 / 2325.594 530 / 530 Weight last 48 hrs Weight 122.101 kg Weight 122.243 kg Weight 125.333 kg Physical Exam 2 Narrative: Patient is awake and alert Abdomen soft Positive bowel sound Euvolemic Pleasant cooperative No active nausea S1, S2 hypertension Currently on room air Data 02/23/24 03:10 02/23/24 03:10 A&P Assessment and plan (1) Atrial fibrillation: Qualifiers: Atrial fibrillation type: paroxysmal Qualified Code(s): I48.0 - Paroxysmal atrial fibrillation (2) Diabetes: Qualifiers: Diabetes mellitus type: type 2 Diabetes mellitus shelter insulin use: without shelter use Diabetes mellitus complication status: without complication Qualified Code(s): E11.9 - Type 2 diabetes mellitus without complications (3) Ischemic bowel disease: (4) Acute hypokalemia: (5) Mesenteric angina: (6) Superior mesenteric artery thrombosis: (7) Renal infarct: Plan Diet advanced to full liquid Discontinue IV fluids Trend inflammatory markers Patient tolerating diet 3 bowel movements last 48 hours Continue heparin drip Most likely will do CT abdomen pelvis on Wednesday, if she keeps showing signs of improvement we might be able to discharge her on Wednesday if general surgery is agreeable, patient is planning to go to [place] with her sister I will give her Eliquis at the time of discharge Continue antibiotics No active nausea or vomiting Appreciate general surgery recommendations Bradycardia is related to sleep apnea For hypertension I will add hydralazine A-fib without RVR Hold off on sotalol Attestations 2 Medical Necessity Statement*: Likely discharge on Wednesday if she keeps showing signs of improvement Diagnoses Paroxysmal atrial fibrillation I48.0 Atrial fibrillation type: paroxysmal Type 2 diabetes mellitus without complication, without long-term current use of insulin E11.9 Diabetes mellitus type: type 2 Diabetes mellitus shelter insulin use: without ad terminal makeup operator use Diabetes mellitus complication status: without complication Ischemic bowel disease K55.9 Acute hypokalemia E87.6 Mesenteric angina K55.1 Superior mesenteric artery thrombosis K55.069 Renal infarct N28.0
[2024-02-23] MEDS: insulin lispro 100 unit/1 mL SUBCUT ×2 (11:58→21:16)
[2024-02-23] MEDS: potassium chloride ER 20 mEq Tablet 40 MEQ PO (11:58)
[2024-02-23] MEDS: heparin drip 25,000 UNIT/500 ML PREMIX 26 UNIT IV (14:34)
[2024-02-23 16:31] LABS: Glucose Point of Care 128 mg/dL (70-110)
[2024-02-23] MEDS: magnesium oxide 400 mg tablet PO (17:26)
[2024-02-23 20:28] LABS: Glucose Point of Care 180 mg/dL (70-110)
[2024-02-23] MEDS: PARoxetine 20 mg Tablet 40 MG PO (21:16)
[2024-02-23 22:33] LABS: Partial Thromboplastin Time 99.1 SECONDS (23.9-36.7)
[2024-02-24] VITALS (9 sets, daily range): BP systolic 127–168; BP diastolic 64–85; PULSE 48–70; RESP 16–18; TEMP 36.4–37.1; O2SAT 93–96
[2024-02-24] MEDS: pantoprazole 40 mg SDV IVP ×2 (03:09→15:27)
[2024-02-24 04:55] LABS: Basophils % 0.4 %; Eosinophils # 0.3 10^3/uL (0.0-0.8); Eosinophils % 5.1 %; Hematocrit 40.6 % (36-47); Lymphocytes # 3.5 10^3/uL (0.8-4.8); Lymphocytes % 52.7 %; Mean Corpuscular HGB Conc 31.3 g/dL (30-55); Mean Corpuscular Hemoglobin 31.3 pg (27-33); Monocytes # 0.7 10^3/uL (0.2-0.9); Monocytes % 10.5 %; Neutrophils # 2.05 10^3/uL (1.8-7.7); Neutrophils % 30.7 %; Nucleated Red Blood Cells % 0 %; Platelet Count 127 10^3/cmm (157-399); Red Blood Count 4.06 10^6/uL (3.85-5.65); Red Cell Distribution Width 13.7 % (12.1-15.1); White Blood Count 6.68 10^3/uL (3.29-11.43)
[2024-02-24 04:56] LABS: Partial Thromboplastin Time 40.6 SECONDS (23.9-36.7)
[2024-02-24 05:03] LABS: Alanine Aminotransferase 11 U/L (0-33); Albumin Level 2.2 g/dL (3.5-5.2); Alkaline Phosphatase 120 U/L (35-105); Anion Gap 14.7 (5-19); Aspartate Amino Transferase 11 U/L (0-32); C Reactive Protein 21.1 mg/L (0.0-4.9); Calcium 7.5 mg/dL (8.5-10.5); Carbon Dioxide 19 mmol/L (22-29); Chloride 105 mmol/L (98-107); Creatinine Clr Calc Pharmacy 114.6837; Globulin 2.3 g/dL (1.3-4.6); Glomerular Filtration Rate 84.8 mL/min (90-130); Glucose 104 mg/dL (65-115); Potassium 3.7 mmol/L (3.5-5.1); Sodium 135 mmol/L (136-145); Total Bilirubin 0.3 mg/dL (0.15-1.2); Total Protein 4.5 g/dL (6.6-8.7)
[2024-02-24 05:07] LABS: Blood Urea Nitrogen 1 mg/dL (8-23); Osmolality Calculated 276 mOsm/kg (285-295)
[2024-02-24] MEDS: piperacillin-tazobactam 3.375 GM in sodium chloride 0.9% (plus) 50 ML IV ×3 (05:25→21:57)
[2024-02-24] MEDS: heparin 5,000 unit/mL INJ 1 mL IV (05:26)
[2024-02-24 06:34] LABS: Glucose Point of Care 93 mg/dL (70-110)
--- NOTE | 2024-02-24 06:57 | P.PN_ITS ---
Subjective 2 Subjective: Patient was evaluated at the bedside this morning, doing well, no abdominal pain, no nausea or vomiting, has not had any more episodes of diarrhea over the last 24 hours. Has tolerated full liquid diet. Vitals/I&O/Wt Last Vital Signs Temp 98.8 F 02/24/24 04:00 Pulse 49 L 02/24/24 05:46 Resp 17 02/24/24 04:00 BP 150/66 02/24/24 04:00 Pulse Ox 95 02/24/24 04:00 O2 Del Method Room Air 02/24/24 04:00 02/23/24 02/23/24 02/24/24 14:59 22:59 06:59 Intake Total 1951.598 / 1951.598 850.067 / 2801.665 276.933 / 3078.598 Output Total 400 / 400 300 / 700 Balance 1951.598 / 1951.598 450.067 / 2401.665 -23.067 / 2378.598 Weight last 48 hrs Weight 269 lb 14.4 oz Weight 269 lb 3 oz Weight 269 lb 8 oz Physical Exam 2 GI: OTHER: Abdominal exam is benign, abdomen soft nontender nondistended. Data 02/24/24 04:35 02/24/24 04:35 A&P Assessment and plan (1) Colitis: (2) Ischemic bowel disease: (3) Superior mesenteric artery thrombosis: Plan Patient showing good progression with conservative management of chronic mesenteric ischemia. Will continue anticoagulation, we will continue full liquid diet today, I would like to repeat a CT a of the abdomen and pelvis tomorrow before deciding on transitioning to low residue diet. Patient has been encouraged to ambulate and to continue current treatment. She agrees. We will continue IV antibiotics in the meantime. -Continue IV heparin -Continue antibiotics -Continue full liquid diet -Ambulate as tolerated -Will continue to trend laboratory workup -Will plan on repeating CTA of the abdomen and pelvis tomorrow morning before advancing diet Attestations 2 Medical Necessity Statement*: per medical team Coding Level of Care Code Acute Code for [facility] Fwd Diagnoses Colitis K52.9 Ischemic bowel disease K55.9 Superior mesenteric artery thrombosis K55.069
[2024-02-24] MEDS: magnesium oxide 400 mg tablet PO ×2 (08:17→17:21)
[2024-02-24] MEDS: levothyroxine 50 mcg Tablet PO (08:17)
--- NOTE | 2024-02-24 09:18 | P.PN_ITS ---
Subjective 2 Subjective: Patient doing better, planning to do CT scan by tomorrow morning Patient has had 4 bowel movements in the hospital Tolerating diet, currently on full liquid Patient is planning to go to [place], currently she was living in a hotel Vitals/I&O/Wt Last Vital Signs Temp 97.6 F 02/24/24 08:00 Pulse 55 L 02/24/24 08:00 Resp 16 02/24/24 08:00 BP 150/76 02/24/24 08:00 Pulse Ox 93 02/24/24 08:00 O2 Del Method Room Air 02/24/24 08:00 02/23/24 02/24/24 02/24/24 22:59 06:59 14:59 Intake Total 850.067 / 2801.665 276.933 / 3078.598 Output Total 400 / 400 300 / 700 Balance 450.067 / 2401.665 -23.067 / 2378.598 Weight last 48 hrs Weight 122.425 kg Weight 122.101 kg Weight 122.243 kg Physical Exam 2 Narrative: Awake and alert Abdomen soft Bowel sound present Euvolemic Sister at the bedside S1, S2 A-fib with slow ventricular sponsor Hemodynamically stable Currently on room air No signs of peritonitis Data 02/24/24 04:35 02/24/24 04:35 A&P Assessment and plan (1) Superior mesenteric artery thrombosis: (2) Atrial fibrillation: Qualifiers: Atrial fibrillation type: paroxysmal Qualified Code(s): I48.0 - Paroxysmal atrial fibrillation (3) Diabetes: Qualifiers: Diabetes mellitus type: type 2 Diabetes mellitus terminal operations manager insulin use: without terminal operations manager use Diabetes mellitus complication status: without complication Qualified Code(s): E11.9 - Type 2 diabetes mellitus without complications (4) Colitis: (5) Ischemic bowel disease: (6) Mesenteric angina: Plan Plan to do CT scan of abdomen pelvis with contrast tomorrow Continue Zosyn Patient tolerating diet Has had 4 bowel movements in the hospital Bowel sound present No signs of peritonitis Patient is planning to go with her sister to [place], she has no place to live here She was living in a hotel She is plan to get GP of her sister in [place] She will go tomorrow as well Full code Currently on heparin drip Attestations 2 Medical Necessity Statement*: Continue medical management Diagnoses Superior mesenteric artery thrombosis K55.069 Paroxysmal atrial fibrillation I48.0 Atrial fibrillation type: paroxysmal Type 2 diabetes mellitus without complication, without long-term current use of insulin E11.9 Diabetes mellitus type: type 2 Diabetes mellitus [facility] insulin use: without terminal operations manager use Diabetes mellitus complication status: without complication Colitis K52.9 Ischemic bowel disease K55.9 Mesenteric angina K55.1
[2024-02-24] MEDS: heparin drip 25,000 UNIT/500 ML PREMIX 35 UNIT IV (09:37)
[2024-02-24 11:23] LABS: Glucose Point of Care 149 mg/dL (70-110)
[2024-02-24 12:35] LABS: Partial Thromboplastin Time 175.7 SECONDS (23.9-36.7)
[2024-02-24] MEDS: insulin lispro 100 unit/1 mL SUBCUT ×2 (12:49→17:38)
[2024-02-24 17:30] LABS: Glucose Point of Care 159 mg/dL (70-110)
[2024-02-24 19:24] LABS: Partial Thromboplastin Time 27.3 SECONDS (23.9-36.7)
[2024-02-24 20:53] LABS: Glucose Point of Care 130 mg/dL (70-110)
[2024-02-24] MEDS: PARoxetine 20 mg Tablet 40 MG PO (21:57)
[2024-02-25] VITALS: BP 161/73; PULSE 53; RESP 16; TEMP 36.7; O2SAT 96
[2024-02-25 02:08] LABS: Basophils % 0.4 %; Eosinophils # 0.3 10^3/uL (0.0-0.8); Eosinophils % 4.2 %; Hematocrit 36.8 % (36-47); Lymphocytes # 4.4 10^3/uL (0.8-4.8); Mean Corpuscular HGB Conc 33.2 g/dL (30-55); Mean Corpuscular Hemoglobin 31.2 pg (27-33); Mean Corpuscular Volume 94.1 fl (85-98); Mean Platelet Volume 9.9 fL (7.4-10.4); Monocytes # 0.7 10^3/uL (0.2-0.9); Monocytes % 9.3 %; Neutrophils % 29.6 %; Nucleated Red Blood Cells % 0 %; Platelet Count 133 10^3/cmm (157-399); Red Blood Count 3.91 10^6/uL (3.85-5.65); Red Cell Distribution Width 13.7 % (12.1-15.1); White Blood Count 7.77 10^3/uL (3.29-11.43)
[2024-02-25 02:23] LABS: Anion Gap 13.6 (5-19); C Reactive Protein 16.5 mg/L (0.0-4.9); Calcium 7.7 mg/dL (8.5-10.5); Carbon Dioxide 24 mmol/L (22-29); Chloride 104 mmol/L (98-107); Creatinine Clr Calc Pharmacy 114.5201; Glomerular Filtration Rate 84.8 mL/min (90-130); Glucose 123 mg/dL (65-115); Potassium 3.6 mmol/L (3.5-5.1); Sodium 138 mmol/L (136-145)
[2024-02-25 02:24] LABS: Lactic Sepsis W/Reflex 0.9 mmol/L (0.5-2.2)
[2024-02-25 02:25] LABS: Blood Urea Nitrogen 1 mg/dL (8-23); Osmolality Calculated 283 mOsm/kg (285-295)
[2024-02-25 02:38] LABS: Partial Thromboplastin Time 130.6 SECONDS (23.9-36.7)
[2024-02-25] MEDS: pantoprazole 40 mg SDV IVP (03:05)
[2024-02-25 04:00] VITALS: BP 170/79; PULSE 54; RESP 16; TEMP 36.6; O2SAT 95
[2024-02-25 05:01] VITALS: PULSE 47
--- NOTE | 2024-02-25 05:04 | PC.NURSE ---
During shift change report from [facility] this nurse was told patients Hep[facility] The next ptt was scheduled for 1829. There were no orders on how to restart the patients drip after it being stopped for so long so this nurse called at 1855 and got orders to restart and titrate off the last dose of 35mls/hr per protocol after the ptt resulted. This nurse called back at 1902 for clarification due to the fact the patients previous ptt was 175 when the drip was ordered to be stopped. The concern was that after the patients drip was stopped for so long the ptt would come back low and we would increase the gtt rate from 35mls/hr and cause another critical lab result at the next ptt draw later in the evening. ordered for the patients Heparin gtt to be restarted at this time and be decreased by 6ml/hr from the rate running pervious to pausing the gtt, which was 35mls/hr, and to disregard the ptt scheduled for 1829. This nurse decreased the patients heparin gtt to 29mls/her at 1930 02/23 and placed the next ptt order for 02/24. The next Ptt was drawn at 0200 by lab and resulted at 0241 and was 130.6. Pts heparin gtt was decreased by 8 units per protocol and is now running at 21mls/hr with next ptt due at 0900.
--- NOTE | 2024-02-25 05:33 | CTR_ITS ---
PROCEDURE INFORMATION: Exam: CT Abdomen And Pelvis With Contrast Exam date and time: 02/25/2024 5:48 AM Age: 63 years old Clinical indication: Abnormal findings; Abnormal radiologic finding of the abdomen; Radiologic exam and body structure: F/u sma thrombus; Additional info: Follow up sma thrombus and microperforation TECHNIQUE: Imaging protocol: Computed tomography of the abdomen and pelvis with contrast. Radiation optimization: All CT scans at this facility use at least one of these dose optimization techniques: automated exposure control; mA and/or kV adjustment per patient size (includes targeted exams where dose is matched to clinical indication); or iterative reconstruction. Contrast material: OMNIPAQUE 350; Contrast volume: 100 ml; Contrast route: INTRAVENOUS (IV); COMPARISON: CT abdomen pelvis w con* [id number] 02/20/2024 5:45 PM RADIATION DOSE METRICS: Total DLP (mGy-cm): 1152.88 FINDINGS: Lungs: Basilar scarring/atelectasis. Heart: Base of heart is unremarkable as visualized. Coronary arteries: Heavy calcified atherosclerotic disease of the visualized coronary vasculature. Liver: Normal. No mass. Gallbladder and biliary ducts: Status post cholecystectomy. Pancreas: Mild diffuse fatty atrophy of the pancreas. Spleen: Stable splenic cystic lesion with dense peripheral calcification. Adrenal glands: Normal. No mass. Kidneys and ureters: Stable right lower renal ill-defined region of hypo enhancement. Stomach and bowel: Stable appearing small bowel anterior wall irregularity with what appears to be contained perforation and mild surrounding inflammatory change (series 3 image 60 through 68). Appendix: Status post appendectomy. Intraperitoneal space: Unremarkable. No free air. No significant fluid collection. Vasculature: Stable appearing filling defect within the distal superior mesenteric artery. Multiple calcified pelvic phleboliths. Moderate calcified atherosclerotic disease of the visualized aorta. Lymph nodes: Unremarkable. No enlarged lymph nodes. Urinary bladder: Unremarkable as visualized. Reproductive: Unremarkable as visualized. Bones/joints: Unremarkable. No acute fracture. Soft tissues: Unremarkable. Other findings: No contrast extravasation on this examination. CT/CT abdomen pelvis w con* [id number] IMPRESSION: 1. Stable contained perforation left lower quadrant small bowel. 2. 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 3. Stable ill-defined hypoenhancement/hypoperfusion of the right kidney which given SMA thrombosis likely reflects infarct, less likely pyelonephritis, correlate clinically.
[2024-02-25] MEDS: piperacillin-tazobactam 3.375 GM in sodium chloride 0.9% (plus) 50 ML IV (06:03)
[2024-02-25 06:26] LABS: Glucose Point of Care 122 mg/dL (70-110)
--- NOTE | 2024-02-25 07:23 | P.PN_ITS ---
Subjective 2 Subjective: Patient seen and examined at the bedside today, no pain, no nausea no vomiting, doing well otherwise. Denies diarrhea over the last 24 hours Vitals/I&O/Wt Last Vital Signs Temp 97.9 F 02/25/24 04:00 Pulse 47 L 02/25/24 05:01 Resp 16 02/25/24 04:00 BP 170/79 02/25/24 04:00 Pulse Ox 95 02/25/24 04:00 O2 Del Method Room Air 02/25/24 04:00 02/24/24 02/25/24 02/25/24 22:59 06:59 14:59 Intake Total 635.917 / 1738.917 95.633 / 1834.550 Balance 635.917 / 1738.917 95.633 / 1834.550 Weight last 48 hrs Weight 265 lb 2 oz Weight 268 lb 8 oz Weight 269 lb 14.4 oz Physical Exam 2 GI: OTHER: Abdominal exam is benign, abdomen is soft, nontender, nondistended, no evidence of peritoneal signs or any abdominal tenderness whatsoever Data 02/25/24 01:55 02/25/24 01:55 Micro: Microbiology 02/20/24 19:25 E. coli Shiga-like Toxin (PCR) - Final Stool Campylobacter (PCR) - Final A&P Assessment and plan (1) Colitis: (2) Ischemic bowel disease: Plan 63-year-old female with chronic mesenteric artery thrombosis who presented with a possible contained perforation, patient has received conservative management with IV antibiotics, bowel rest and heparin. She has been doing very well no significant pain tolerating diet all labs have remained stable and inflammatory markers have trended down. A CT scan of the abdomen and pelvis with contrast was done today, shows stable findings no evidence of any kind of progression no evidence of free air in the abdomen no evidence of significant inflammatory changes. With this findings with patient excellent clinical progression I am okay with her to advance to low residue diet and we can transition her to an oral anticoagulant. The patient is tolerating she would be able to continue management as outpatient with p.o. anticoagulation, low residue diet and 10 more days of antibiotic.. -Stable CT scan of the abdomen and pelvis -Normal abdominal exam -Okay to advance to low residue diet -Okay to transition to p.o. Eliquis -All other management per primary team Attestations 2 Medical Necessity Statement*: Per primary team Coding Level of Care Code Acute Code for Chg Fwd Diagnoses Colitis K52.9 Ischemic bowel disease K55.9
[2024-02-25 07:30] VITALS: BP 181/92; PULSE 52; RESP 18; TEMP 36.3; O2SAT 93
[2024-02-25] MEDS: levothyroxine 50 mcg Tablet PO (09:20)
[2024-02-25] MEDS: magnesium oxide 400 mg tablet PO (09:21)
[2024-02-25 09:50] LABS: Partial Thromboplastin Time 93.5 SECONDS (23.9-36.7)
--- NOTE | 2024-02-25 10:44 | P.DS_ITS ---
Discharge Providers Date of Admission: 02/18/24 11:51 Date of Discharge: February 25, 2024 Attending Provider at Admission: Stan Hull MD Attending Provider at Discharge: Radha Sorenson MD Primary Care Provider: Christianne Jiang MD Diagnoses at Discharge Discharge Diagnosis (1) Colitis: Status: Acute (2) Ischemic bowel disease: Status: Acute Reason for Visit Reason for Visit: Hasn't ate in 2 weeks due to stomach pain Hospital Course Hospital Course 63-year-old female who was admitted for management and evaluation of colitis and diverticulitis initially she was put on IV antibiotics, patient suffered from persistent vomiting 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 Patient was experiencing bowel movement in the hospital. Vascular surgery recommended continuation of treatment at our hospital. We repeated her CT scan of abdomen pelvis with contrast on 02/24 which has not shown any worsening, her diet has been advanced to full liquid. Patient will be discharged on Eliquis and 14-day regimen of antibiotics. Patient does not have any lodging in [place], she is planning to go back to [place] with her sister, patient is stating that she will likely settle in [place]. I have asked her sister to arrange a follow-up visit with her PCP which she is already planning to arrange. I do believe her symptoms were related to thromboembolic phenomenon from A-fib and noncompliance with Eliquis. Patient spent a week in the hospital. Physical Exam Narrative: Awake and alert Abdomen soft Positive bowel sounds GCS 15 S1, S2 Nonfocal neuroexam Lymphedema Discharge Data Studies Completed and Pending Completed Studies During Hospitalization Category Date Time Status CT abdomen pelvis w con* [id number] Routine Cat Scan 02/25/24 05:[address] abdomen pelvis w con* [id number] Stat Cat Scan 02/20/24 17:[address] abdomen pelvis wo con [id number] Stat Cat Scan 02/17/24 23:06 Completed XR KUB 30043 Routine Exams 02/20/24 09:13 Completed XR KUB [id number] Urgent Exams 02/19/24 11:50 Completed XR KUB portable [id number] Stat Exams 02/18/24 13:26 Completed XR abdomen 1V* [id number] Stat Exams 02/23/24 06:05 Completed CV renal doppler [id number] Stat Ultrasound 02/21/24 09:30 Completed Pending at discharge Category Date Time Status Salmonella / Shigella / Campy Routine Lab 02/18/24 19:25 Results Radiology Impressions KUB X-Ray 02/20/24 09:13 IMPRESSION: A loop of small bowel within the left hemiabdomen measures up to 3.6 cm, concerning for ileus. Findings can be further evaluated with CT scan if clinically indicated. Abdomen X-Ray 02/23/24 06:05 IMPRESSION: No acute abnormality Abdomen/Pelvis CT 02/25/24 05:33 IMPRESSION: 1. Stable contained perforation left lower quadrant small bowel. 2. 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 3. Stable ill-defined hypoenhancement/hypoperfusion of the right kidney which given SMA thrombosis likely reflects infarct, less likely pyelonephritis, correlate clinically. Laboratory Results WBC 7.77 10^3/uL (3.29-11.43) 02/25/24 01:55 RBC 3.91 10^6/uL (3.85-5.65) 02/25/24 01:55 Hgb 12.20 g/dL (11.27-16.99) 02/25/24 01:55 Hct 36.8 % (36-47) 02/25/24 01:55 MCV 94.1 fl (85-98) D 02/25/24 01:55 MCH 31.2 pg (27-33) 02/25/24 01:55 MCHC 33.2 g/dL (30-55) D 02/25/24 01:55 RDW 13.7 % (12.1-15.1) 02/25/24 01:55 Plt Count 133 10^3/cmm (157-399) L 02/25/24 01:55 MPV 9.9 fL (7.4-10.4) 02/25/24 01:55 Neut % (Auto) 29.6 % 02/25/24 01:55 Lymph % (Auto) 56.0 % 02/25/24 01:55 Spencer % (Auto) 9.3 % 02/25/24 01:55 Eos % (Auto) 4.2 % 02/25/24 01:55 Baso % (Auto) 0.4 % 02/25/24 01:55 Neut # (Auto) 2.30 10^3/uL (1.8-7.7) 02/25/24 01:55 Lymph # (Auto) 4.4 10^3/uL (0.8-4.8) 02/25/24 01:55 Spencer # (Auto) 0.7 10^3/uL (0.2-0.9) 02/25/24 01:55 Eos # (Auto) 0.3 10^3/uL (0.0-0.8) 02/25/24 01:55 Baso # (Auto) 0.0 10^3/uL (0.0-0.1) 02/25/24 01:55 Nucleated RBC % (auto) 0 % 02/25/24 01:55 Nucleated RBCs # 0.0 /100WBC 02/25/24 01:55 APTT 93.5 SECONDS (23.9-36.7) H 02/25/24 08:58 D-Dimer 1.45 ug/mLFEU (0-0.59) H 02/22/24 04:17 Sodium 138 mmol/L (136-145) 02/25/24 01:55 Potassium 3.6 mmol/L (3.5-5.1) 02/25/24 01:55 Chloride 104 mmol/L (98-107) 02/25/24 01:55 Carbon Dioxide 24 mmol/L (22-29) 02/25/24 01:55 Anion Gap 13.6 (5-19) 02/25/24 01:55 BUN 1 mg/dL (8-23) L 02/25/24 01:55 Creatinine 0.7 mg/dL (0.5-0.9) 02/25/24 01:55 GFR Calculation 84.8 mL/min (90-130) L 02/25/24 01:55 Glucose 123 mg/dL (65-115) H 02/25/24 01:55 POC Glucose 122 mg/dL (70-110) H 02/25/24 06:22 Calculated Osmolality 283 mOsm/kg (285-295) L 02/25/24 01:55 Lactic Acid 0.9 mmol/L (0.5-2.2) 02/25/24 01:55 Lactate 0.9 mmol/L (0.5-2.2) 02/22/24 04:17 Calcium 7.7 mg/dL (8.5-10.5) L 02/25/24 01:55 Phosphorus 2.1 mg/dL (2.5-4.5) L 02/21/24 03:21 Magnesium 1.4 mg/dL (1.7-2.3) L 02/21/24 03:21 Total Bilirubin 0.3 mg/dL (0.15-1.2) 02/24/24 04:35 AST 11 U/L (0-32) 02/24/24 04:35 ALT 11 U/L (0-33) 02/24/24 04:35 Alkaline Phosphatase 120 U/L (35-105) H 02/24/24 04:35 Lactate Dehydrogenase 157 U/L (135-214) 02/20/24 18:47 C-Reactive Protein 16.5 mg/L (0.0-4.9) H 02/25/24 01:55 Total Protein 4.5 g/dL (6.6-8.7) L 02/24/24 04:35 Albumin 2.2 g/dL (3.5-5.2) L 02/24/24 04:35 Globulin 2.3 g/dL (1.3-4.6) 02/24/24 04:35 Lipase 32 U/L (13-60) 02/17/24 21:39 Procalcitonin 0.29 ng/mL (0-0.5) 02/20/24 18:47 Urine Color Dark yellow (Yellow) A 02/18/24 01:00 Urine Appearance Cloudy (CLEAR) A 02/18/24 01:00 Urine pH 5.5 (5-7) 02/18/24 01:00 Ur Specific [place] 1.023 (1.005-1.030) 02/18/24 01:00 Urine Protein 1+ (Negative) A 02/18/24 01:00 Urine Glucose (UA) Negative (Normal) 02/18/24 01:00 Urine Ketones Trace (Negative) 02/18/24 01:00 Urine Blood Negative (Negative) 02/18/24 01:00 Urine Nitrate Negative (Negative) 02/18/24 01:00 Urine Bilirubin 2+ (Negative) H 02/18/24 01:00 Urine Urobilinogen 1.0 mg/dL (Negative) 02/18/24 01:00 Ur Leukocyte Esterase 1+ (Negative) A 02/18/24 01:00 Urine RBC 6-10 /hpf (0-2) 02/18/24 01:00 Urine WBC 21-50 /hpf (0-5) H 02/18/24 01:00 Ur Squamous Epith Cells 6-10 /hpf (0-5) 02/18/24 01:00 Amorphous Sediment Not Reportable 02/18/24 01:00 Urine Bacteria 4+ /hpf (NONE) H 02/18/24 01:00 Hyaline Casts 38.59 /lpf 02/18/24 01:00 Serum Ketones Negative (Negative) 02/18/24 11:45 C. difficile (PCR) Negative (Negative) 02/20/24 19:25 SARS-CoV-2 Ag (Rapid) negative (Negative) 02/17/24 22:32 Vitals Last Vital Signs Temp 97.4 F L 02/25/24 07:30 Pulse 52 L 02/25/24 07:30 Resp 18 02/25/24 07:30 BP 181/92 02/25/24 07:30 Pulse Ox 93 02/25/24 07:30 O2 Del Method Room Air 02/25/24 07:30 Discharge Plan Discharge Patient Disposition: Home Condition: Stable Prescriptions: New metronidazole 500 mg tablet 500 mg PO BID 14 Days Qty: 28 0RF ciprofloxacin HCl 500 mg tablet 500 mg PO Q12H Qty: 28 0RF ondansetron HCl 4 mg tablet 4 mg PO DAILY PRN (Reason: nausea and vomiting) Qty: 7 0RF metoprolol tartrate 25 mg tablet 12.5 mg PO BID Qty: 30 0RF Continued acetaminophen 325 mg tablet 325 mg PO QID PRN (Reason: Pain) loratadine 10 mg tablet 10 mg PO DAILY buspirone 5 mg tablet 5 mg PO BID PRN (Reason: anxiety) Qty: 60 3RF levothyroxine 50 mcg tablet 50 mcg PO DAILY Qty: 30 3RF magnesium oxide 400 mg magnesium capsule 400 mg PO DAILY Qty: 90 3RF potassium chloride 10 mEq tablet extended release 10 meq PO BID Qty: 180 0RF simvastatin 40 mg tablet 40 mg PO DAILY Qty: 30 3RF Januvia 100 mg tablet 100 mg PO DAILY Qty: 30 3RF benzonatate 100 mg capsule 100 mg PO TID PRN (Reason: cough) Qty: 30 2RF (DME) Shower chair See Rx Instructions .Route .MEDSUPPLY Qty: 1 0RF Rx Instructions: As directed diphenoxylate-atropine [Lomotil] 2.5-0.025 mg tablet 1 tab PO TID PRN (Reason: diarrhea) Qty: 20 0RF Jardiance 25 mg tablet 25 mg PO DAILY Qty: 30 2RF furosemide 40 mg tablet 40 mg PO DAILY Qty: 30 3RF albuterol sulfate 90 mcg/actuation HFA aerosol inhaler 2 puff inhalation QID PRN (Reason: shortness of breath or wheezing) Qty: 8.5 0RF Ozempic 0.25 mg or 0.5 mg (2 mg/3 mL) pen injector 0.25 mg SUBCUT .COMPLEX Qty: 3 0RF Rx Instructions: 0.25 mg subcutaneously weekly for four weeks, then increase to 0.5. weekly; vitamin B complex Tablet 1 tab PO DAILY metformin 500 mg tablet extended release 24 hr 500 mg PO BID ondansetron 4 mg tablet,disintegrating 4 mg PO DAILY PRN (Reason: Nausea And Vomiting) Eliquis 5 mg tablet 5 mg PO BID Qty: 60 0RF Discontinued sotalol 80 mg tablet 80 mg PO BID paroxetine HCl 40 mg tablet 40 mg PO BEDTIME Discharge Orders: Discharge Order (Routine); Ordered 02/25/24 Ordered By: Radha Sorenson Referrals: Christianne Jiang MD [Primary Care Provider] - Patient Instructions: Ciprofloxacin (By mouth), Metoprolol (By mouth), Metronidazole (By mouth), Ondansetron (By injection), Chronic Kidney Disease (DC), Opioid Safety Discharge Attestations Time Spent in Discharge Care*: greater than 30 min Quality Metrics Clinical Quality Measures [ No reported AMI, CVA or VTE this stay] Coding Level of Care Code Acute Code for [facility] Fwd Diagnoses Colitis K52.9 Ischemic bowel disease K55.9
== END 2024-02-25 10:54 | disposition home or self-care (01) | DRG 393 ==
LOC: ER 02-18 02:15 → MEDSURG 02-18 03:04
PROVIDERS: Emergency Medicine; Internal Medicine; Specialist; Student in an Organized Health Care Education/Training Program; Surgery; Admitting Provider Internal Medicine; Emergency Provider Student in an Organized Health Care Education/Training Program; PCP Family Medicine; Visit Provider Internal Medicine
DX: K55.1 Chronic vascular disorders of intestine (principal); K63.1 Perforation of intestine (nontraumatic); N30.01 Acute cystitis with hematuria; N17.9 Acute kidney failure, unspecified; K55.029 Acute infarction of small intestine, extent unspecified; T45.516A Underdosing of anticoagulants, initial encounter; I48.0 Paroxysmal atrial fibrillation; E87.6 Hypokalemia; F41.8 Other specified anxiety disorders; E83.42 Hypomagnesemia; E11.65 Type 2 diabetes mellitus with hyperglycemia; I10 Essential (primary) hypertension; E03.9 Hypothyroidism, unspecified; E78.5 Hyperlipidemia, unspecified; G47.33 Obstructive sleep apnea (adult) (pediatric); F17.210 Nicotine dependence, cigarettes, uncomplicated; Z91.128 Patient's intentional underdosing of medication regimen for other reason; Z79.01 Long term (current) use of anticoagulants; Z79.85 Long-term (current) use of injectable non-insulin antidiabetic drugs; Z79.84 Long term (current) use of oral hypoglycemic drugs
CPT/HCPCS: 36415; 36416; 74018; 74176; 74177; 80048; 80053; 80069; 81003; 81015; 82009; 82962; 83605; 83615; 83690; 83735; 84100; 84145; 85025; 85378; 85730; 86140; 87045; 87077; 87086; 87186; 87426; 87427; 87449; 87493; 93005; 93975; 96365; 96372; 96375; 96376; 99285; G0378; J0696; J1644; J1815; J2270; J2405; J2470; J2543; J2550; J2765; J3475; J3480; J3490; J7030; J7121; Q9967

== ENCOUNTER 2024-07-20 14:57 | Emergency (ER) | payer OTHER, SELFPAY ==
[2024-07-20 16:18] VITALS: BP 105/71; PULSE 69; RESP 18; TEMP 36.6; O2SAT 96; BMI 35.6
--- NOTE | 2024-07-20 18:37 | CTR_ITS ---
PROCEDURE INFORMATION: Exam: CT Abdomen And Pelvis With Contrast Exam date and time: 07/20/2024 7:40 PM Age: 63 years old Clinical indication: Abdominal pain; Generalized; Additional info: Abdominal pain, sprbr accidentally canceled this order instead of another, just reordering TECHNIQUE: Imaging protocol: Computed tomography of the abdomen and pelvis with contrast. Radiation optimization: All CT scans at this facility use at least one of these dose optimization techniques: automated exposure control; mA and/or kV adjustment per patient size (includes targeted exams where dose is matched to clinical indication); or iterative reconstruction. Contrast material: OMNI 350; Contrast volume: 100 ml; Contrast route: INTRAVENOUS (IV); COMPARISON: CT abdomen pelvis w con* [id number] 02/25/2024 5:48 AM RADIATION DOSE METRICS: Total DLP (mGy-cm): 931.21 FINDINGS: Lungs: The lung bases are clear. Heart: Heart size is within normal limits. There is no pericardial effusion or pericardial thickening. Liver: The liver is normal. No hepatic masses are identified. Gallbladder and biliary ducts: The gallbladder is surgically absent. There is no ductal dilatation. Pancreas: The pancreas is normal. Spleen: Stable peripherally calcified splenic low-density lesions. Spleen is otherwise normal. Adrenal glands: The adrenal glands are normal. Kidneys and ureters: Stable area of decreased enhancement in the mid right kidney suggesting prior infarct. No renal calcifications. No hydronephrosis. Stomach and bowel: Stable fatty infiltration of the wall of the cecum and proximal ascending colon. Several segments of small bowel wall thickening in the left lower quadrant with induration of the adjacent mesentery and some vascular engorgement. No large or small bowel obstruction. No other areas of bowel wall thickening. Appendix: A normal appendix is identified. Intraperitoneal space: No pneumoperitoneum. No free fluid or fluid collections. No other areas of inflammatory change. Vasculature: Atherosclerotic calcifications of the aorta are present. No aneurysm is identified. Lymph nodes: No enlarged lymph nodes are identified. Urinary bladder: The bladder is decompressed and collapsed. No abnormality identified. Reproductive: The uterus is present. Bones/joints: No acute osseous abnormalities are seen. Soft tissues: The soft tissues are within normal limits. CT/CT abdomen pelvis w con* [id number] IMPRESSION: 1. Focal small bowel wall thickening with adjacent inflammatory change and vascular engorgement consistent with a focal nonspecific enteritis. The segments are in the same location as abnormal segments described on prior imaging. Recommend GI consultation. 2. Other nonemergent findings above.
[2024-07-20 19:00] VITALS: BP 130/104; PULSE 65; O2SAT 95
[2024-07-20 19:14] LABS: Basophils # 0.1 10^3/uL (0.0-0.1); Basophils % 0.7 %; Eosinophils # 0.2 10^3/uL (0.0-0.8); Eosinophils % 1.4 %; Hematocrit 48.8 % (36-47); Lymphocytes # 6.6 10^3/uL (0.8-4.8); Lymphocytes % 43.8 %; Mean Corpuscular HGB Conc 33.8 g/dL (30-55); Mean Corpuscular Hemoglobin 31.1 pg (27-33); Mean Corpuscular Volume 91.9 fl (85-98); Mean Platelet Volume 10.5 fL (7.4-10.4); Monocytes # 0.8 10^3/uL (0.2-0.9); Monocytes % 5.1 %; Neutrophils # 7.29 10^3/uL (1.8-7.7); Neutrophils % 48.5 %; Nucleated Red Blood Cells % 0 %; Platelet Count 217 10^3/cmm (157-399); Red Blood Count 5.31 10^6/uL (3.85-5.65); White Blood Count 14.99 10^3/uL (3.29-11.43)
[2024-07-20 19:30] LABS: Alanine Aminotransferase 8 U/L (0-33); Albumin Level 3.3 g/dL (3.5-5.2); Alkaline Phosphatase 60 U/L (35-105); Anion Gap 13.6 (5-19); Aspartate Amino Transferase 14 U/L (0-32); Blood Urea Nitrogen 10 mg/dL (8-23); C Reactive Protein 18.3 mg/L (0.0-4.9); Calcium 9.1 mg/dL (8.5-10.5); Carbon Dioxide 24 mmol/L (22-29); Chloride 102 mmol/L (98-107); Creatinine Clr Calc Pharmacy 106.2857; Globulin 2.7 g/dL (1.3-4.6); Glomerular Filtration Rate 84.8 mL/min (90-130); Glucose 122 mg/dL (65-115); Lactic Sepsis W/Reflex 1.2 mmol/L (0.5-2.2); Lipase 31 U/L (13-60); Osmolality Calculated 280 mOsm/kg (285-295); Potassium 4.6 mmol/L (3.5-5.1); Sodium 135 mmol/L (136-145); Total Bilirubin 0.4 mg/dL (0.15-1.2)
[2024-07-20 19:34] LABS: Bilirubin Urine 1+ (Negative); Blood Urine Negative (Negative); Glucose Urine UA Negative (Normal); Ketones Urine Negative (Negative); Leukocyte Esterase Urine Negative (Negative); Nitrate Urine Negative (Negative); Protein Urine Negative (Negative); Specific Gravity, Urine 1.016 (1.005-1.030); Urine Appearance Cloudy (CLEAR); Urine Color Dark Yellow (Yellow); pH Urine 5.5 (5-7)
[2024-07-20 19:36] LABS: Bacteria Urine 3+ /hpf; Hyaline Casts Urine 4.11 /lpf; RBC Urine 0-2 /hpf (0-2)
[2024-07-20 19:42] LABS: Amphetamines Screen Urine Negative (Negative); Barbiturates Screen Urine Negative (Negative); Benzodiazepines Screen Urine Negative (Negative); Cocaine Screen Urine Negative (Negative); Opiate Screen Urine Negative (Negative); PCP Screen Urine Negative (Negative); THC Screen Urine Negative (Negative)
[2024-07-20 19:54] LABS: Covid PCR NEGATIVE (Negative); Influenza A NEGATIVE (Negative); Influenza B NEGATIVE (Negative); Respiratory Syncytial Virus Ce NEGATIVE (Negative)
[2024-07-20 19:58] LABS: UA Slide Review UA Slide Review Perf
--- NOTE | 2024-07-20 20:15 | W.ED.ABDPA2 ---
HPI - Abdominal Pain General: Chief Complaint: Abdominal Pain Stated Complaint: abdominal pain Time Seen by Provider: 07/20/24 18:28 History of Present Illness: Patient is a 63-year-old female presents to the emergency department with complaints of abdominal pain, nausea vomiting and diarrhea. Patient was seen back in January 2024 and diagnosed with enteritis as well as mesentery thrombosis. She was started on Eliquis, Protonix Cipro and Flagyl. Patient spent the neck several months recovering and has had follow-up with primary care. They are recommending an EGD. Patient has not had an colonoscopy since 2019. Has not had prior EGD. Patient states that she did get better for approximately 1 month but symptoms came back this week. Related Data Home Medications Medication Instructions Recorded Confirmed acetaminophen 325 mg tablet 325 mg PO QID PRN Pain 02/16/23 05/24/24 loratadine 10 mg tablet 10 mg PO DAILY 02/16/23 05/24/24 metformin 500 mg tablet,extended 500 mg PO BID 02/18/24 05/24/24 release 24 hr ondansetron 4 mg disintegrating 4 mg PO DAILY PRN Nausea And 02/18/24 05/24/24 tablet Vomiting vitamin B complex 1 tab PO DAILY 02/18/24 05/24/24 Previous Rx's Medication Instructions Recorded buspirone 5 mg tablet 5 mg PO BID PRN anxiety #60 tabs 07/05/23 levothyroxine 50 mcg tablet 50 mcg PO DAILY #30 tabs 07/05/23 magnesium oxide 400 mg PO DAILY #90 caps 07/05/23 potassium chloride 10 mEq 10 meq PO BID #180 tabs 07/05/23 tablet,extended release simvastatin 40 mg tablet 40 mg PO DAILY #30 tabs 07/05/23 sitagliptin phosphate 100 mg 100 mg PO DAILY #30 tabs 07/05/23 tablet (Januvia) empagliflozin 25 mg tablet 25 mg PO DAILY #30 tabs 10/01/23 (Jardiance) benzonatate 100 mg capsule 100 mg PO TID PRN cough #30 caps 10/29/23 albuterol sulfate 90 mcg/actuation 2 puff inhalation QID PRN 11/08/23 aerosol inhaler shortness of breath or wheezing #8.5 grams furosemide 40 mg tablet 40 mg PO DAILY #30 tabs 11/08/23 Shower chair #1 ea 11/16/23 semaglutide 0.25 mg or 0.5 mg (2 0.25 mg (0.368 mL) SUBCUT .COMPLEX 12/07/23 mg/3 mL) subcutaneous pen injector #3 mL (Ozempic) diphenoxylate-atropine 2.5 1 tab PO TID PRN diarrhea #20 tabs 02/08/24 mg-0.025 mg tablet (Lomotil) apixaban 5 mg tablet (Eliquis) 5 mg PO BID #60 tabs 02/25/24 ciprofloxacin HCl 500 mg tablet 500 mg PO Q12H #28 tabs 02/25/24 metoprolol tartrate 25 mg tablet 12.5 mg (1/2 x 25 mg) PO BID #30 02/25/24 tabs ondansetron HCl 4 mg tablet 4 mg PO DAILY PRN nausea and 02/25/24 vomiting #7 tabs ciprofloxacin HCl 500 mg tablet 500 mg PO Q12H #20 tabs 07/20/24 metronidazole 500 mg tablet 500 mg PO Q12H 10 days #20 tabs 07/20/24 Allergies Allergy/AdvReac Type Severity Reaction Status Date / Time amoxicillin Allergy Mild ALGY-Hives Verified 07/20/24 16:21 lisinopril AdvReac Severe ADR-Cough Verified 07/20/24 16:21 metaxalone AdvReac Severe ADR-Diarrhe Verified 07/20/24 16:21 a codeine AdvReac Mild Messes Verified 07/20/24 16:21 with brain steroids AdvReac Mild Swelling Uncoded 07/20/24 16:21 PFS ED PFSH: Medical History 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 Hypokalemia Hypomagnesemia Ischemic bowel disease Acute kidney injury Acute hypokalemia Urinary tract infection Colitis Hypothyroidism Depression with anxiety Diabetes Atrial fibrillation Hypertension Arthritis Surgical History S/P knee replacement S/P cholecystectomy Family History Mother Myocardial infarction S/P PTCA (percutaneous transluminal coronary angioplasty) Stroke Hyperlipidemia Father Myocardial infarction S/P PTCA (percutaneous transluminal coronary angioplasty) Hypertension Hyperlipidemia Sister Myocardial infarction S/P PTCA (percutaneous transluminal coronary angioplasty) Hypertension Diabetes Social History Smoking and tobacco/nicotine status: current every day tobacco/nicotine user cigarettes Packs smoked per day: 1 Years cigarettes smoked: 50 Physical Exam Const: COMMON NORMALS: no acute distress, patient oriented x3 and alert GENERAL APPEARANCE: cooperative ORIENTATION/CONSCIOUSNESS: Yes awake, Yes oriented to person, Yes oriented to place and Yes oriented to time Neck/C-Spine: COMMON NORMALS: full ROM GENERAL: Yes normal visual inspection Lymph: LYMPHATIC: no lymphadenopathy noted Chest: COMMONS NORMALS: normal inspection of the chest Breast/axilla inspection: Yes no chest deformity, asymmetry, normal contours, no nodules, masses, tenderness Resp: COMMON NORMALS: normal respiratory effort, No retractions, No use of accessory muscles and clear to auscultation bilaterally EFFORT & INSPECTION: Yes able to speak in complete sentences and Yes symmetric chest movement AUSCULTATION: clear to auscultation bilaterally Cardio: COMMON NORMALS: regular rate, regular rhythm and Peripheral pulses 2+ throughout RATE: regular rate RHYTHM: regular rhythm PERIPHERAL PULSES: Peripheral pulses 2+ throughout GI: COMMON NORMALS: Normal to inspection, nondistended, normoactive bowel sounds present, Soft to palpation, non-tender and No hepatosplenomegaly present INSPECTION: Yes normal to inspection AUSCULTATION: Yes Hypoactive bowel sounds present PALPATION: Yes Soft to palpation and Yes No hepatosplenomegaly present RECTAL EXAM: deferred Extremity: COMMON NORMALS: normal to inspection GENERAL: Yes normal exam except as noted Neuro: COMMON NORMALS: patient oriented x3 SENSORIUM/ORIENTATION: Yes alert, Yes oriented to person, Yes oriented to place and Yes oriented to time CRANIAL NERVES: Yes CN normal except as noted Psych: COMMON NORMALS: mental status grossly normal, Normal thought process present, cooperative, activity/motor behavior normal, denies homicidal ideation and denies suicidal ideation THOUGHT PROCESS: Normal thought process present Skin: COMMON NORMALS: no rashes or lesions noted, no wounds and turgor normal GENERAL SKIN EXAM: no rashes or lesions noted and turgor normal Course Vital Signs: Vital signs: Vital Signs Temperature 97.9 F 07/20/24 16:18 Pulse Rate 65 07/20/24 19:00 Respiratory Rate 18 07/20/24 16:18 Blood Pressure 130/104 07/20/24 19:00 Pulse Oximetry 95 07/20/24 19:00 Oxygen Delivery Me thod Room Air 07/20/24 16:18 MDM - Abdominal Pain Medical Decision Making Patient was evaluated in the emergency department today for abdominal pain. History of mesenteric thrombosis for which she is currently taking Eliquis. Patient states that following that initial episode of gastroenteritis and thrombosis, her symptoms improved. In the last week she has had redevelopment of her abdominal pain. Patient underwent diagnostic evaluation today that included CBC, CMP, CRP, lipase, urinalysis, urine drug screen, COVID influenza and RSV testing. Laboratory studies reveal leukocytosis of 15,000. No anemias or thrombocytopenia. The chemistry panel reveals no significant electrolyte abnormality, renal or liver dysfunction. Lipase was 31, lactic acid within normal limits but CRP is 18. She had a urinalysis which reveals 3+ bacteria but 6-10 on urine white blood cells negative leukoesterase and negative nitrate. I believe that her urine bacteria is contaminant. She did undergo a CT abdomen and pelvis with contrast. The CT revealed focal small bowel wall thickening with adjacent inflammatory changes and vascular engorgement consistent with focal nonspecific enteritis. The segments are the same as her prior episode. Patient does have a primary care doctor who is setting up an EGD for 01 August. She is going to speak with Dr. Morris about doing a colonoscopy. Patient is also interested in getting some assistance in setting up her [facility] Medicaid. She currently has [place] Medicaid. Case management referral sent. Patient was started on Flagyl and Cipro. She will discharge home on oral medications. Patient is agreeable and all questions were answered Lab Data 07/20/24 19:00 07/20/24 19:00 Labs/Radiology: Radiology Impressions Abdomen/Pelvis CT 07/20/24 18:37 IMPRESSION: 1. Focal small bowel wall thickening with adjacent inflammatory change and vascular engorgement consistent with a focal nonspecific enteritis. The segments are in the same location as abnormal segments described on prior imaging. Recommend GI consultation. 2. Other nonemergent findings above. Laboratory Results WBC 14.99 10^3/uL (3.29-11.43) H 07/20/24 19:00 RBC 5.31 10^6/uL (3.85-5.65) 07/20/24 19:00 Hgb 16.50 g/dL (11.27-16.99) 07/20/24 19:00 Hct 48.8 % (36-47) H 07/20/24 19:00 MCV 91.9 fl (85-98) 07/20/24 19:00 MCH 31.1 pg (27-33) 07/20/24 19:00 MCHC 33.8 g/dL (30-55) 07/20/24 19:00 RDW 15.0 % (12.1-15.1) 07/20/24 19:00 Plt Count 217 10^3/cmm (157-399) 07/20/24 19:00 MPV 10.5 fL (7.4-10.4) H 07/20/24 19:00 Neut % (Auto) 48.5 % 07/20/24 19:00 Lymph % (Auto) 43.8 % 07/20/24 19:00 Dubois % (Auto) 5.1 % 07/20/24 19:00 Eos % (Auto) 1.4 % 07/20/24 19:00 Baso % (Auto) 0.7 % 07/20/24 19:00 Neut # (Auto) 7.29 10^3/uL (1.8-7.7) 07/20/24 19:00 Lymph # (Auto) 6.6 10^3/uL (0.8-4.8) H 07/20/24 19:00 Dubois # (Auto) 0.8 10^3/uL (0.2-0.9) 07/20/24 19:00 Eos # (Auto) 0.2 10^3/uL (0.0-0.8) 07/20/24 19:00 Baso # (Auto) 0.1 10^3/uL (0.0-0.1) 07/20/24 19:00 Nucleated RBC % (auto) 0 % 07/20/24 19:00 Nucleated RBCs # 0.0 /100WBC 07/20/24 19:00 Sodium 135 mmol/L (136-145) L 07/20/24 19:00 Potassium 4.6 mmol/L (3.5-5.1) 07/20/24 19:00 Chloride 102 mmol/L (98-107) 07/20/24 19:00 Carbon Dioxide 24 mmol/L (22-29) 07/20/24 19:00 Anion Gap 13.6 (5-19) 07/20/24 19:00 BUN 10 mg/dL (8-23) 07/20/24 19:00 Creatinine 0.7 mg/dL (0.5-0.9) 07/20/24 19:00 GFR Calculation 84.8 mL/min (90-130) L 07/20/24 19:00 Glucose 122 mg/dL (65-115) H 07/20/24 19:00 Calculated Osmolality 280 mOsm/kg (285-295) L 07/20/24 19:00 Lactic Acid 1.2 mmol/L (0.5-2.2) 07/20/24 19:00 Calcium 9.1 mg/dL (8.5-10.5) 07/20/24 19:00 Total Bilirubin 0.4 mg/dL (0.15-1.2) 07/20/24 19:00 AST 14 U/L (0-32) 07/20/24 19:00 ALT 8 U/L (0-33) 07/20/24 19:00 Alkaline Phosphatase 60 U/L (35-105) 07/20/24 19:00 C-Reactive Protein 18.3 mg/L (0.0-4.9) H 07/20/24 19:00 Total Protein 6.0 g/dL (6.6-8.7) L 07/20/24 19:00 Albumin 3.3 g/dL (3.5-5.2) L 07/20/24 19:00 Globulin 2.7 g/dL (1.3-4.6) 07/20/24 19:00 Lipase 31 U/L (13-60) 07/20/24 19:00 Urine Color Dark yellow (Yellow) A 07/20/24 19:15 Urine Appearance Cloudy (CLEAR) A 07/20/24: Urine pH 5.5 (5-7) 07/20/24 19:15 Ur Specific Florien 1.016 (1.005-1.030) 07/20/24 19:15 Urine Protein Negative (Negative) 07/20/24: Urine Glucose (UA) Negative (Normal) 07/20/24: Urine Ketones Negative (Negative) 07/20/24 19:15 Urine Blood Negative (Negative) 07/20/24 19:15 Urine Nitrate Negative (Negative) 07/20/24 19:15 Urine Bilirubin 1+ (Negative) H 07/20/24 19:15 Urine Urobilinogen 1.0 mg/dL (Negative) 07/20/24 19:15 Ur Leukocyte Esterase Negative (Negative) 07/20/24 19:15 Urine RBC 0-2 /hpf (0-2) 07/20/24 19:15 Urine WBC 6-10 /hpf (0-5) 07/20/24 19:15 Ur Squamous Epith Cells 11-20 /hpf (0-5) 07/20/24 19:15 Amorphous Sediment Not Reportable 07/20/24 19:15 Urine Bacteria 3+ /hpf (NONE) H 07/20/24 19:15 Hyaline Casts 4.11 /lpf 07/20/24 19:15 Urine Opiates Screen Negative ng/mL (Negative) 07/20/24 19:15 Ur Barbiturates Screen Negative ng/mL (Negative) 07/20/24 19:15 Ur Phencyclidine Scrn Negative ng/mL (Negative) 07/20/24 19:15 Ur Amphetamines Screen Negative ng/mL (Negative) 07/20/24 19:15 U Benzodiazepines Scrn Negative ng/mL (Negative) 07/20/24 19:15 Urine Cocaine Screen Negative ng/mL (Negative) 07/20/24 19:15 U Marijuana (THC) Screen Negative ng/mL (Negative) 07/20/24 19:15 Coronavirus (PCR) Negative (Negative) 07/20/24 19:03 Influenza A (PCR) Negative (Negative) 07/20/24 19:03 Influenza Type B (PCR) Negative (Negative) 07/20/24 19:03 RSV (PCR) Negative (Negative) 07/20/24 19:03 All radiology interpretation(s) finalized by discharge Discharge Plan Discharge Patient Disposition: Home Clinical Impression: Enteritis Condition: Stable Prescriptions: New ciprofloxacin HCl 500 mg tablet 500 mg PO Q12H Qty: 20 0RF metronidazole 500 mg tablet 500 mg PO Q12H 10 Days Qty: 20 0RF No Action acetaminophen 325 mg tablet 325 mg PO QID PRN (Reason: Pain) loratadine 10 mg tablet 10 mg PO DAILY buspirone 5 mg tablet 5 mg PO BID PRN (Reason: anxiety) Qty: 60 3RF levothyroxine 50 mcg tablet 50 mcg PO DAILY Qty: 30 3RF magnesium oxide 400 mg magnesium capsule 400 mg PO DAILY Qty: 90 3RF potassium chloride 10 mEq tablet extended release 10 meq PO BID Qty: 180 0RF simvastatin 40 mg tablet 40 mg PO DAILY Qty: 30 3RF Januvia 100 mg tablet 100 mg PO DAILY Qty: 30 3RF benzonatate 100 mg capsule 100 mg PO TID PRN (Reason: cough) Qty: 30 2RF (DME) Shower chair See Rx Instructions .Route .MEDSUPPLY Qty: 1 0RF Rx Instructions: As directed diphenoxylate-atropine [Lomotil] 2.5-0.025 mg tablet 1 tab PO TID PRN (Reason: diarrhea) Qty: 20 0RF Jardiance 25 mg tablet 25 mg PO DAILY Qty: 30 2RF furosemide 40 mg tablet 40 mg PO DAILY Qty: 30 3RF albuterol sulfate 90 mcg/actuation HFA aerosol inhaler 2 puff inhalation QID PRN (Reason: shortness of breath or wheezing) Qty: 8.5 0RF Ozempic 0.25 mg or 0.5 mg (2 mg/3 mL) pen injector 0.25 mg SUBCUT .COMPLEX Qty: 3 0RF Rx Instructions: 0.25 mg subcutaneously weekly for four weeks, then increase to 0.5. weekly; vitamin B complex Tablet 1 tab PO DAILY metformin 500 mg tablet extended release 24 hr 500 mg PO BID ondansetron 4 mg tablet,disintegrating 4 mg PO DAILY PRN (Reason: Nausea And Vomiting) ciprofloxacin HCl 500 mg tablet 500 mg PO Q12H Qty: 28 0RF ondansetron HCl 4 mg tablet 4 mg PO DAILY PRN (Reason: nausea and vomiting) Qty: 7 0RF Eliquis 5 mg tablet 5 mg PO BID Qty: 60 0RF metoprolol tartrate 25 mg tablet 12.5 mg PO BID Qty: 30 0RF Discharge Orders: Discharge ED (Routine); Ordered 07/20/24 Ordered By: [facility]ets[facility] Ac[facility] Referrals: Christianne Jiang MD [Primary Care Provider] - Discharge Diet: Advance as tolerated Discharge Activity: Resume usual activity Patient Instructions: Enteritis (ED), Pain Management Activity Restrictions/Additional Instructions: Please take medications as prescribed Please return to the emergency department for new, concerning, worsening symptoms Coding Level of Care Code ED Trial Management Associate for Boo Burnett
[2024-07-20 20:30] VITALS: BP 124/89; PULSE 62; RESP 16; O2SAT 96
[2024-07-20] MEDS: ciprofloxacin 500 mg Tablet PO (20:30)
[2024-07-20] MEDS: metroNIDAZOLE 500 MG Tablet PO (20:30)
[2024-07-20 20:53] VITALS: BP 126/89; PULSE 81; O2SAT 96
== END 2024-07-20 21:01 | disposition home or self-care (01) ==
PROVIDERS: Emergency Medicine; Emergency Provider Nurse Practitioner; PCP Family Medicine
DX: K52.9 Noninfective gastroenteritis and colitis, unspecified (principal); Z11.52 Encounter for screening for COVID-19; Z79.84 Long term (current) use of oral hypoglycemic drugs; Z79.01 Long term (current) use of anticoagulants; F17.210 Nicotine dependence, cigarettes, uncomplicated; E11.9 Type 2 diabetes mellitus without complications; I10 Essential (primary) hypertension
CPT/HCPCS: 36415; 74177; 80053; 80306; 81001; 83605; 83690; 85025; 86140; 87637; 99284; Q9967

== ENCOUNTER → 2024-10-19 10:00 | Outpatient (BNVA) | payer MEDICARE, SELFPAY | PROVIDERS: PCP Family Medicine; Visit Provider Family Medicine | DX: E78.2 Mixed hyperlipidemia (principal); E03.9 Hypothyroidism, unspecified; I48.0 Paroxysmal atrial fibrillation; E11.9 Type 2 diabetes mellitus without complications; E55.9 Vitamin D deficiency, unspecified | CPT/HCPCS: 80053; 80061; 82043; 82306; 83036; 84443; 85025 ==

== ENCOUNTER → 2024-10-26 14:01 | Outpatient (BNVA) | payer MEDICARE, SELFPAY | PROVIDERS: PCP Family Medicine; Visit Provider Podiatrist Foot & Ankle Surgery | DX: E11.69 Type 2 diabetes mellitus with other specified complication (principal); B35.1 Tinea unguium; L84 Corns and callosities; R60.9 Edema, unspecified; I73.9 Peripheral vascular disease, unspecified | CPT/HCPCS: 11056; 11721 ==

== ENCOUNTER → 2024-11-09 11:01 | Outpatient (BNVA) | payer MEDICARE, SELFPAY | PROVIDERS: PCP Family Medicine; Visit Provider Family Medicine | DX: R10.9 Unspecified abdominal pain (principal); D72.829 Elevated white blood cell count, unspecified; Z01.818 Encounter for other preprocedural examination | CPT/HCPCS: 80053; 81003; 83690; 85025 ==

== ENCOUNTER → 2024-11-15 14:39 | Outpatient (BNVA) | payer MEDICARE, SELFPAY | PROVIDERS: PCP Family Medicine; Visit Provider Internal Medicine | DX: I48.0 Paroxysmal atrial fibrillation (principal); Z79.01 Long term (current) use of anticoagulants; E78.2 Mixed hyperlipidemia; E11.9 Type 2 diabetes mellitus without complications; F41.8 Other specified anxiety disorders; F17.210 Nicotine dependence, cigarettes, uncomplicated; R06.02 Shortness of breath | CPT/HCPCS: 99214 ==

== ENCOUNTER → 2024-12-26 08:58 | Outpatient (BNVA) | payer MEDICARE, SELFPAY | PROVIDERS: PCP Family Medicine; Visit Provider Podiatrist Foot & Ankle Surgery | DX: E11.69 Type 2 diabetes mellitus with other specified complication (principal); B35.1 Tinea unguium; L84 Corns and callosities; R60.9 Edema, unspecified; I73.9 Peripheral vascular disease, unspecified | CPT/HCPCS: 11056; 11721 ==

== ENCOUNTER → 2025-02-01 15:54 | Outpatient (BNVA) | payer MEDICARE, SELFPAY | PROVIDERS: PCP Family Medicine; Visit Provider Family Medicine | DX: E78.2 Mixed hyperlipidemia (principal); I48.0 Paroxysmal atrial fibrillation; K55.069 Acute infarction of intestine, part and extent unspecified; E11.9 Type 2 diabetes mellitus without complications; E03.9 Hypothyroidism, unspecified; D72.829 Elevated white blood cell count, unspecified; R10.9 Unspecified abdominal pain; F41.8 Other specified anxiety disorders | CPT/HCPCS: 80053; 80061; 83036; 84443; 85025 ==

== ENCOUNTER → 2025-02-28 09:17 | Outpatient (BNVA) | payer MEDICARE, SELFPAY | PROVIDERS: PCP Family Medicine; Visit Provider Podiatrist Foot & Ankle Surgery | DX: E11.69 Type 2 diabetes mellitus with other specified complication (principal); B35.1 Tinea unguium; L84 Corns and callosities; R60.9 Edema, unspecified; I73.9 Peripheral vascular disease, unspecified | CPT/HCPCS: 11055; 11721 ==

== ENCOUNTER 2025-03-12 08:32 | Outpatient (CLI) | payer MEDICARE, SELFPAY ==
--- NOTE | 2025-03-12 08:45 | CT_ITS ---
WS: [id number] CT ABDOMEN AND PELVIS WITH CONTRAST HISTORY: worsening abdominal pain TECHNIQUE: Imaging performed of the abdomen and pelvis with IV contrast. Single phase imaging of the abdomen. Coronal and sagittal reformats are submitted. All CT scans at [facility] use at least one of these dose optimization techniques: automated exposure control; mA and/or kV adjustment per patient size (includes targeted exams where dose is matched to clinical indication); or iterative reconstruction. IV CONTRAST: Omnipaque 350; 100 mL IV. Oral contrast: Yes. DLP: 731.61 mGy.cm COMPARISON: 02/25/2024, 07/20/2024 Lower thorax: Lung bases are clear. Heart is normal size. No hiatal hernia. Liver/biliary system: Normal size with no intrahepatic dilatation. Gallbladder: Status post cholecystectomy. Pancreas: Normal size pancreas and pancreatic duct. No adjacent inflammation. Spleen: Normal size spleen. Peripherally calcified low-attenuation mass noted in the LEFT spleen is stable over multiple prior exams. May be from prior hemorrhage or granulomatous disease. Adrenal glands: Normal. Right kidney: Mild atrophy RIGHT kidney measures 8.5 cm in length. Focal area of decreased enhancement involving the cortex of the mid kidney which has been previously described. Volume loss of the cortex consistent with a prior infarct. No obstruction. Left kidney: Normal. Aorta: Mild atherosclerosis with no aneurysm. Moderate calcified plaque in the celiac axis and SMA. No thrombus is identified. Lymphadenopathy: None. Free fluid: None. GI tract: Stomach is well distended with oral contrast. Partial small bowel obstruction. Reidentified is a segment of distal small bowel with circumferential soft tissue thickening and luminal narrowing. This segment of the small bowel abnormality extends over a length of at least 14 cm. Progression of small bowel wall thickening and narrowing of the lumen. Largest area of small bowel wall thickening is 10 mm. Partial small bowel obstruction is noted. This segment of small bowel proximal to the abnormality is dilated. The terminal ileum is spared. There is mild vasa recta prominence. No colon obstruction. Abdominal wall: Unremarkable abdominal wall. No hernia. Pelvis: No free fluid or adenopathy within the pelvis. Bones: L4 anterolisthesis by [address]/CT abdomen pelvis w con* [id number] IMPRESSION: 1. Progression of distal small bowel circumferential wall thickening with narr owing of the lumen and now a partial obstruction. Differential includes small b owel neoplasm such as adenocarcinoma and lymphoma. Inflammatory stricture and i schemic disease. Metastatic disease from melanoma or other etiologies may also present as such. No metastatic disease elsewhere. There is no perforation. Fabrizio mmend follow-up with general surgery. PET/CT imaging may also provide additiona l information. 2. Prior cholecystectomy. 3. Long-term stability peripherally calcified splenic mass. 4. Mild atrophy RIGHT kidney with a prior cortical infarct. 5. No SMA thrombus identified on today's exam. Moderate atherosclerosis aorta and mesenteric arteries.
[2025-03-12] MEDS: iohexol 350 mg/mL 500 mL Btl (per mL) PO (09:22)
[2025-03-12] MEDS: iohexol 350 mg/mL 500 mL Btl (per mL) IV (09:49)
== END 2025-03-12 08:33 | disposition home or self-care (01) ==
LOC: RAD 08:34
PROVIDERS: PCP Family Medicine; Visit Provider Family Medicine
DX: R10.9 Unspecified abdominal pain (principal); N26.1 Atrophy of kidney (terminal)
CPT/HCPCS: 74177

== ENCOUNTER 2025-04-09 09:54 | Outpatient (CLI) | payer MEDICARE, SELFPAY ==
--- NOTE | 2025-04-09 10:15 | US_ITS ---
WS: [id number] THYROID ULTRASOUND HISTORY: E01.0 - Iodine-deficiency related diffuse (endemic) goiter COMPARISON: None available. Right lobe: 3.5 cm x 3.2 cm x 6.4 cm (w x ap x l). Enlarged RIGHT thyroid. Predominantly cystic nodule centered in the mid gland. There is solid lobulated components associated with this cystic nodule and a fluid/fluid layer. The nodule measures 4.3 x 3.0 x 4.0 cm. Fluid/fluid layer is probably due to a hemorrhagic component. There are a few lacy reticulations within the cystic nodule. Left lobe: 1.1 cm x 1.5 cm x 4.9 cm (w x ap x l). Volume: 4.0 cm3. Normal sized gland. There is a nearly isoechoic nodule in the superior pole measuring 1.0 x 0.7 x 1.2 cm. This is a well-circumscribed nodule with a few echogenic foci. Increased vascularity within and surrounding this nodule. Isthmus: 0.2 cm. US/US thyroid [id number] IMPRESSION: 1. TI-RADS 2; large complex cystic nodule with hemorrhagic component involving a large portion of the RIGHT thyroid. The nodule measures 4.3 x 3.0 x 4.0 cm. Predominately cystic nodule. If nodule continues to increase in size ENT evalua tion may be of benefit. 2. TI-RADS 4; LEFT thyroid nodule. Moderately suspicious predominantly due to the echogenic foci. As per TI-RADS criteria biopsy is not recommended until gre ater than 1.5 cm. Recommend yearly ultrasound evaluation.
== END 2025-04-09 09:55 | disposition home or self-care (01) ==
PROVIDERS: PCP Family Medicine; Visit Provider Family Medicine
DX: E04.2 Nontoxic multinodular goiter (principal); E07.9 Disorder of thyroid, unspecified
CPT/HCPCS: 76536

== ENCOUNTER → 2025-05-09 13:35 | Outpatient (BNVA) | payer MEDICARE, SELFPAY | PROVIDERS: PCP Family Medicine; Visit Provider Podiatrist Foot & Ankle Surgery | DX: E11.69 Type 2 diabetes mellitus with other specified complication (principal); B35.1 Tinea unguium; L84 Corns and callosities; E11.9 Type 2 diabetes mellitus without complications; R60.9 Edema, unspecified; I73.9 Peripheral vascular disease, unspecified | CPT/HCPCS: 11721 ==

== ENCOUNTER 2025-06-06 12:45 | Outpatient (CLI) | payer MEDICARE, SELFPAY ==
--- NOTE | 2025-06-06 13:00 | MM_ITS ---
WS: [id number] BILATERAL 3D TOMOSYNTHESIS DIGITAL SCREENING MAMMOGRAPHY WITH CAD CLINICAL INFORMATION: SCREENING HISTORY: Screening mammogram. No current complaints. COMPARISON: 2006 TECHNIQUE: Bilateral CC and MLO views. FINDINGS: Scattered fibroglandular densities bilaterally. No suspicious focal mass, asymmetry, calcifications, or architectural distortion. No evidence of malignancy. Punctate and lucent centered calcifications. Secretory calcifications. Vascular calcifications. MM/MM [facility] tomosynthesis [id number] IMPRESSION: DENSITY: There are scattered areas of fibroglandular density. BI-RADS: 2 - Benign. FOLLOW UP: 1 Year Follow-up Recommend return to annual screening mammography.
== END 2025-06-06 12:46 | disposition home or self-care (01) ==
LOC: MOBLMAM 12:46
PROVIDERS: PCP Family Medicine; Visit Provider Family Medicine
DX: Z12.31 Encounter for screening mammogram for malignant neoplasm of breast (principal); R92.323 Mammographic fibroglandular density, bilateral breasts; R92.1 Mammographic calcification found on diagnostic imaging of breast
CPT/HCPCS: 77063; 77067

== ENCOUNTER → 2025-06-20 15:29 | Outpatient (BNVA) | payer MEDICARE, SELFPAY | PROVIDERS: PCP Family Medicine; Visit Provider Internal Medicine | DX: I48.91 Unspecified atrial fibrillation (principal); F17.210 Nicotine dependence, cigarettes, uncomplicated; Z79.01 Long term (current) use of anticoagulants | CPT/HCPCS: 99213 ==